=== PATIENT | male | born 1975 | race Caucasian/White ===

== ENCOUNTER 2016-11-28 19:48 | Emergency (ER) | payer OTHER ==
[2016-11-28] MEDS ORDERED: MORPHINE SULFATE 4 MG/ML SYRINGE IM STA (20:28)
[2016-11-28] MEDS ORDERED: ONDANSETRON ODT 4 MG TAB PO STA (20:29)
[2016-11-28] MEDS ORDERED: DIPH,PERTUS(ACELL)TETVAC-LF 0.5 ML VIAL IM ONE (20:31)
[2016-11-28] MEDS ORDERED: MORPHINE SULFATE 10 MG/ML SYRINGE IM STA (20:39)
--- NOTE | 2016-11-28 21:19 | XR ---
EXAMINATION TYPE: XR ribs RT w pa chest xray DATE OF EXAM: 11/28/2016 COMPARISON: 01/17/2016 HISTORY: Right-sided rib pain and falling TECHNIQUE: 5 views FINDINGS: There is no pleural effusion or pneumothorax. Right lung is clear of infiltrate. I see no r ib fracture. Heart and mediastinum appear normal. IMPRESSION: Normal chest. Normal right ribs. No change.
--- NOTE | 2016-11-28 21:21 | XR ---
EXAMINATION TYPE: XR shoulder complete RT DATE OF EXAM: 11/28/2016 COMPARISON: NONE HISTORY: Shoulder pain TECHNIQUE: 3 views FINDINGS: There is probably a nondisplaced chip fracture of the greater tuberosity of the humerus. Th e glenohumeral joint is anatomic. IMPRESSION: Probable nondisplaced fracture of the greater tuberosity of the humerus. This measures 2 cm.
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
[2016-11-28 22:31] VITALS: BP 145/81; PULSE 83; RESP 18; TEMP 98.4
== END 2016-11-28 22:31 | disposition home or self-care (01) ==
LOC: EC 19:48
DX: S42.201A Unspecified fracture of upper end of right humerus, initial encounter for closed fracture (principal); S00.93XA Contusion of unspecified part of head, initial encounter; S30.811A Abrasion of abdominal wall, initial encounter; S50.811A Abrasion of right forearm, initial encounter; Z23 Encounter for immunization; F17.200 Nicotine dependence, unspecified, uncomplicated; V29.9XXA Motorcycle rider (driver) (passenger) injured in unspecified traffic accident, initial encounter; Y92.89 Other specified places as the place of occurrence of the external cause
CPT/HCPCS: 71101; 73030; 90715; 99283; 96372; 90471; J2270

== ENCOUNTER 2017-02-02 22:11 | Emergency (ER) | payer OTHER ==
[2017-02-03 00:59] VITALS: BP 127/86; PULSE 100; RESP 16; TEMP 98.4
--- NOTE | 2017-02-03 01:08 | ED ---
General Adult HPI - General Chief complaint: Extremity Injury, Upper Stated complaint: finger laceration Time Seen by Provider: 02/02/17 23:43 Source: patient Mode of arrival: ambulatory Limitations: no limitations - History of Present Illness Initial comments: Patient presents with a chief complaint of finger laceration that he sustained 4 :00 this afternoon while whittling a bear out of wood for his daughter. Patient states that his tetanus status is up to date. Initially he wrapped his finger and the bleeding was well controlled. He was in his pocket later that evening and the bleeding started again. Patient states that he is having mild pain to the finger. Nothing is aggravating or alleviating. Patient has full use of his left index finger. No other complaints at this time - Related Data Home Medications Medication Instructions Recorded Confirmed Pseudoephedrine HCl [Sudafed 240 mg PO DAILY PRN 02/02/17 02/02/17 24-Hour] Allergies Allergy/AdvReac Type Severity Reaction Status Date / Time No Known Allergies Allergy Verified 02/02/17 23:46 Review of Systems ROS Statement: Those systems with pertinent positive or pertinent negative responses have been documented in the HPI. ROS Other: All systems not noted in ROS Statement are negative. Constitutional: Denies: fever, chills Eyes: Denies: vision change Respiratory: Denies: cough, dyspnea Cardiovascular: Denies: chest pain Endocrine: Denies: fatigue Gastrointestinal: Denies: abdominal pain, nausea Genitourinary: Denies: dysuria Skin: Denies: rash Neurological: Denies: numbness Past Medical History Past Medical History: Osteoarthritis (OA) History of Any Multi-Drug Resistant Organisms: MRSA Past Surgical History: Orthopedic Surgery Past Psychological History: No Psychological Hx Reported Smoking Status: Current every day smoker Past Alcohol Use History: Occasional Past Drug Use History: Marijuana General Exam Limitations: no limitations General appearance: alert, in no apparent distress Head exam: Present: atraumatic, normocephalic Eye exam: Present: normal appearance, PERRL ENT exam: Present: normal exam Neck exam: Present: normal inspection Respiratory exam: Present: normal lung sounds bilaterally. Absent: respiratory distress Cardiovascular Exam: Present: regular rate, normal rhythm, normal heart sounds GI/Abdominal exam: Present: soft, distended Rectal exam: Present: deferred Extremities exam: Present: other (Patient has a skin avulsion to the dorsal aspect of his left index finger. Patient has full range of motion without finger, sensation and motor are intact. Examination of the wound shows that there is no muscle, tendon, nerve, or bony involvement.) Back exam: Present: normal inspection Neurological exam: Present: alert, oriented X3 Psychiatric exam: Present: normal affect, normal mood Skin exam: Present: warm, dry, other (Laceration to finger as described above.) Course Vital Signs 02/02/17 02/03/17 22:14 00:55 Temperature 98.5 F 98.4 F Pulse Rate 118 H 100 Respiratory 18 16 Rate Blood Pressure 140/80 127/86 O2 Sat by Pulse 97 97 Oximetry Procedures - Laceration Laceration #1 Consent Obtained: verbal consent Time Out Performed: Yes Indication: laceration Site: hand Size (cm): 4 Description: flap Depth: simple, single layer Sedation/Analgesia: none Anesthetic Used: lidocaine 1% Anesthesia Technique: nerve block Pre-repair: wound explored, irrigated extensively, deep structures intact Type of Sutures: nylon Size of Sutures: 5-0 Technique: simple, interrupted Patient Tolerated Procedure: well, no complications Medical Decision Making - Medical Decision Making Patient presents with a laceration to the left index finger. Sensation and motor is intact. There is no involvement of deep structures. Laceration was repaired using 5-0 silk suture. A digital block was performed, wound was washed out with copious amounts of water. Patient is a total of 7 stitches. He was instructed to have them removed in 1 week. The wound was dressed with antibiotic ointment, and tube gauze. He was instructed to not soak the finger. Instructed to follow up with primary care, or to return to the emergency department if his symptoms worsen or change. Specifically he was given instructions on finger or hand infections. Patient tolerated procedure well, he remained stable in the emergency department. Patient stable for discharge. Disposition Clinical Impression: Finger laceration Disposition: HOME SELF-CARE Condition: Good Instructions: Finger Laceration (ED) Referrals: William See MD [Primary Care Provider] - 1-2 days
== END 2017-02-03 01:23 | disposition home or self-care (01) ==
LOC: EC 22:11
DX: S61.211A Laceration without foreign body of left index finger without damage to nail, initial encounter (principal); M19.90 Unspecified osteoarthritis, unspecified site; F17.200 Nicotine dependence, unspecified, uncomplicated; W26.0XXA Contact with knife, initial encounter; Y93.G1 Activity, food preparation and clean up; Y92.009 Unspecified place in unspecified non-institutional (private) residence as the place of occurrence of the external cause
CPT/HCPCS: 12002; 99283

== ENCOUNTER 2020-02-27 09:22 | Emergency (ER) | payer OTHER ==
[2020-02-27 09:32] VITALS: BP 136/95; PULSE 81; RESP 18; TEMP 98
--- NOTE | 2020-02-27 09:58 | ED ---
Skin/Abscess/FB HPI - General Chief complaint: Skin/Abscess/Foreign Body Stated complaint: rash on hands/legs Time Seen by Provider: 02/27/20 09:35 Source: patient, RN notes reviewed Mode of arrival: ambulatory Limitations: no limitations - History of Present Illness Initial comments: 44-year-old male presents emergency Department with chief complaint rash shortness hands forearm region. Patient states very itchy. Patient states it's the point where he is scratches his skin open. Patient states this started after being released from [facility]. Patient denies any fevers or chills. Patient states that he tried some antifungal does occasionally help. Patient states that it seems to be spreading at this point. Patient offers no other complaints. - Related Data Home Medications Medication Instructions Recorded Confirmed Pseudoephedrine HCl [Sudafed 240 mg PO DAILY PRN 02/02/17 02/02/17 24-Hour] Previous Rx's Medication Instructions Recorded Cephalexin [Keflex] 500 mg PO QID #28 cap 02/03/17 Permethrin 5% Cream [Elimite] 1 applic TOPICAL ONCE #60 gram 02/27/20 Sulfamethox-Tmp 800-160Mg [Bactrim 1 each PO Q12HR #20 tab 02/27/20 Ds] predniSONE 50 mg PO DAILY #5 tab 02/27/20 Allergies Allergy/AdvReac Type Severity Reaction Status Date / Time No Known Allergies Allergy Verified 02/27/20 09:32 Review of Systems ROS Statement: Those systems with pertinent positive or pertinent negative responses have been documented in the HPI. ROS Other: All systems not noted in ROS Statement are negative. Past Medical History Past Medical History: Osteoarthritis (OA) History of Any Multi-Drug Resistant Organisms: MRSA Past Surgical History: Orthopedic Surgery Past Psychological History: No Psychological Hx Reported Smoking Status: Current every day smoker Past Alcohol Use History: None Reported Past Drug Use History: None Reported General Exam Limitations: no limitations General appearance: alert, in no apparent distress Head exam: Present: atraumatic, normocephalic, normal inspection Neck exam: Present: normal inspection. Absent: tenderness, meningismus, lymphadenopathy Respiratory exam: Present: normal lung sounds bilaterally. Absent: respiratory distress, wheezes, rales, rhonchi, stridor Cardiovascular Exam: Present: regular rate, normal rhythm, normal heart sounds. Absent: systolic murmur, diastolic murmur, rubs, gallop, clicks Skin exam: Present: rash (Bilateral hands, forearm region there is an erythematous rash with excoriations and open wounds noted) Course Vital Signs 02/27/20 09:26 Temperature 98 F Pulse Rate 81 Respiratory 18 Rate Blood Pressure 136/95 O2 Sat by Pulse 96 Oximetry Medical Decision Making - Medical Decision Making Patient has ongoing rash of his upper extremities. This may be some sort of dermatitis versus possible scabies. Patient will be covered with permethrin, antibiotics steroids. Disposition Clinical Impression: Dermatitis Disposition: HOME SELF-CARE Condition: Stable Instructions (If sedation given, give patient instructions): Dermatitis (ED) Additional Instructions: Please return to the Emergency Department if symptoms worsen or any other concerns. Prescriptions: Sulfamethox-Tmp 800-160Mg [Bactrim Ds] 1 each PO Q12HR #20 tab Permethrin 5% Cream [Elimite] 1 applic TOPICAL ONCE #60 gram predniSONE 50 mg PO DAILY #5 tab Is patient prescribed a controlled substance at d/c from ED?: No Referrals: Violeta Umanzor MD [Primary Care Provider] - 1-2 days Tran Shanks MD [STAFF PHYSICIAN] - 1-2 days Time of Disposition: 09:58
== END 2020-02-27 10:08 | disposition home or self-care (01) ==
LOC: EC 09:22
DX: L30.9 Dermatitis, unspecified (principal); F17.200 Nicotine dependence, unspecified, uncomplicated
CPT/HCPCS: 99282

== ENCOUNTER 2020-05-06 23:56 | Emergency (ER) | payer OTHER ==
--- NOTE | 2020-05-07 00:38 | ED ---
Skin/Abscess/FB HPI - General Chief complaint: Skin/Abscess/Foreign Body Stated complaint: not feeling well Time Seen by Provider: 05/07/20 00:17 Source: patient Mode of arrival: ambulatory Limitations: no limitations - History of Present Illness Initial comments: Patient is a 45-year-old male presenting to emergency Department with complaints of some discomfort in his left arm. Patient states he just recently started using IV drugs mostly in his left arm and is concerned he may have an infection. Patient states people have been telling him he "looks pale." He denies having a fever, chills, nausea, vomiting. He states he's been eating and drinking as normal. He states he has some intermittent numbness into his left hand over the past few weeks as well. He denies any chest pain, shortness of breath, cough. He has no further complaints at this time. Upon arrival to the ER his vital signs are stable. - Related Data Home Medications Medication Instructions Recorded Confirmed Pseudoephedrine HCl [Sudafed 240 mg PO DAILY PRN 02/02/17 02/02/17 24-Hour] Previous Rx's Medication Instructions Recorded Cephalexin [Keflex] 500 mg PO QID #28 cap 02/03/17 Permethrin 5% Cream [Elimite] 1 applic TOPICAL ONCE #60 gram 02/27/20 Sulfamethox-Tmp 800-160Mg [Bactrim 1 each PO Q12HR #20 tab 02/27/20 Ds] predniSONE 50 mg PO DAILY #5 tab 02/27/20 Allergies Allergy/AdvReac Type Severity Reaction Status Date / Time No Known Allergies Allergy Verified 05/07/20 00:07 Review of Systems ROS Statement: Those systems with pertinent positive or pertinent negative responses have been documented in the HPI. ROS Other: All systems not noted in ROS Statement are negative. Past Medical History Past Medical History: Osteoarthritis (OA) History of Any Multi-Drug Resistant Organisms: MRSA Past Surgical History: Orthopedic Surgery Past Psychological History: No Psychological Hx Reported Smoking Status: Current every day smoker Past Alcohol Use History: None Reported Past Drug Use History: IV Drug Use, Methamphetamine General Exam - General Exam Comments Initial Comments: GENERAL: Patient is well-developed and well-nourished. Patient is nontoxic and in no acute distress. HEAD: Atraumatic, normocephalic. EYES: Pupils equal round and reactive to light, extraocular movements intact, sclera anicteric, conjunctiva are normal. Eyelids were unremarkable. ENT: TMs normal, nares patent, oropharynx clear without exudates. Moist mucous membranes. NECK: Normal range of motion, supple without lymphadenopathy or JVD. LUNGS: Unlabored respirations. Breath sounds clear to auscultation bilaterally and equal. No wheezes rales or rhonchi. HEART: Regular rate and rhythm without murmurs, rubs or gallops. ABDOMEN: Soft, nontender, normoactive bowel sounds. No guarding, no rebound. No masses appreciated. : Deferred MUSCULOSKELETAL: Normal extremities with adequate strength and normal range of motion, no pitting or edema. No clubbing or cyanosis. NEUROLOGICAL: Patient is alert and oriented x 3. Motor and sensory are also intact. Cranial nerves II through XII grossly intact. Symmetrical smile. Normal speech, normal gait. PSYCH: Normal mood, normal affect. SKIN: Warm, Dry, normal turgor. Patient has numerous tracks crain on his left arm mostly around the left elbow and left hand. There is no signs of an abscess or infection at this time. Limitations: no limitations Course Vital Signs 05/07/20 00:04 Temperature 98.4 F Pulse Rate 84 Respiratory 18 Rate Blood Pressure 149/78 O2 Sat by Pulse 97 Oximetry Medical Decision Making - Medical Decision Making Patient is a 45-year-old male here for complaints of possible infection in his left arm. Patient admits to being an IV drug abuser for the last 3 weeks. He does have track crain mostly in his left arm, there is no obvious infection or abscess at this time. His vital signs are stable he is afebrile. The rest of exam is unremarkable, he does not look pale. I discussed with patient that he needs to keep these wounds clean and dry. Stop using IV drugs. He is stable for discharge at this time. Return parameters were discussed with the patient he verbalizes understanding. Disposition Clinical Impression: IV drug user, Track crain due to intravenous drug abuse Disposition: HOME SELF-CARE Condition: Stable Instructions (If sedation given, give patient instructions): Methamphetamine Abuse (ED) Additional Instructions: Please return to the Emergency Department if symptoms worsen or any other concerns. Keep wounds clean and dry. Stop using drugs. Is patient prescribed a controlled substance at d/c from ED?: No Referrals: Violeta Umanzor MD [Primary Care Provider] - 1-2 days
[2020-05-07 01:08] VITALS: BP 143/84; PULSE 80; RESP 14; TEMP 97.9
== END 2020-05-07 00:45 | disposition home or self-care (01) ==
LOC: EC 23:56
DX: F15.10 Other stimulant abuse, uncomplicated (principal); F17.200 Nicotine dependence, unspecified, uncomplicated; Z86.14 Personal history of Methicillin resistant Staphylococcus aureus infection
CPT/HCPCS: 99283

== ENCOUNTER 2020-05-27 20:24 | Emergency (ER) | payer OTHER ==
[2020-05-27 20:30] VITALS: BP 124/72; PULSE 89; RESP 20; TEMP 98
--- NOTE | 2020-05-27 21:01 | ED ---
General Adult HPI - General Chief complaint: Skin/Abscess/Foreign Body Stated complaint: Sores on feet/hands Time Seen by Provider: 05/27/20 20:32 Source: patient Mode of arrival: ambulatory Limitations: no limitations - History of Present Illness Initial comments: 45-year-old male with history of IV drug use and MRSA presenting to emergency Department with chief complaint of sores on bilateral feet and hands. He states these began about 2 days ago and there is a "yellow film of oil" that comes from his feet and hands. He denies any night sweats fevers or chills. States the lesions on his hands have been there for quite some time, however there is one new lesion on his dorsal aspect of the right hand. She does report some yellow discharge from that particular region. She does report tenderness to palpation. He denies taking medication to the symptoms. Denies any lesions on his fingernails any chest pain or shortness of breath. - Related Data Home Medications Medication Instructions Recorded Confirmed Pseudoephedrine HCl [Sudafed 240 mg PO DAILY PRN 02/02/17 02/02/17 24-Hour] Previous Rx's Medication Instructions Recorded Cephalexin [Keflex] 500 mg PO QID #28 cap 02/03/17 Permethrin 5% Cream [Elimite] 1 applic TOPICAL ONCE #60 gram 02/27/20 Sulfamethox-Tmp 800-160Mg [Bactrim 1 each PO Q12HR #20 tab 02/27/20 Ds] predniSONE 50 mg PO DAILY #5 tab 02/27/20 Sulfamethox-Tmp 800-160Mg [Bactrim 1 each PO Q12HR #20 tab 05/27/20 Ds] Allergies Allergy/AdvReac Type Severity Reaction Status Date / Time No Known Allergies Allergy Verified 05/27/20 20:30 Review of Systems ROS Statement: Those systems with pertinent positive or pertinent negative responses have been documented in the HPI. ROS Other: All systems not noted in ROS Statement are negative. Past Medical History Past Medical History: Osteoarthritis (OA) History of Any Multi-Drug Resistant Organisms: MRSA Past Surgical History: Orthopedic Surgery Past Psychological History: No Psychological Hx Reported Smoking Status: Current every day smoker Past Alcohol Use History: None Reported Past Drug Use History: IV Drug Use, Methamphetamine General Exam Limitations: no limitations General appearance: alert, in no apparent distress Head exam: Present: atraumatic, normocephalic, normal inspection Eye exam: Present: normal appearance, PERRL, EOMI Pupils: Present: normal accommodation ENT exam: Present: normal exam, normal oropharynx, mucous membranes moist, TM's normal bilaterally, normal external ear exam Neck exam: Present: normal inspection, full ROM. Absent: tenderness Respiratory exam: Present: normal lung sounds bilaterally. Absent: respiratory distress, wheezes, rales Cardiovascular Exam: Present: regular rate, normal rhythm, normal heart sounds. Absent: systolic murmur, diastolic murmur Extremities exam: Present: normal inspection (Healing lesions on bilateral hands, particularly the dorsal aspect. There is a suspected small abscess on the right hand with no active discharge at this time. no detectable lesions on his feet), full ROM, normal capillary refill, other (+2 ulnar and radial pulses bilaterally. +2 dorsalis pedis and posterior tibial bilaterally.). Absent: tenderness, pedal edema, joint swelling, calf tenderness Back exam: Present: normal inspection, full ROM. Absent: tenderness, CVA tenderness (R), CVA tenderness (L) Neurological exam: Present: alert, oriented X3, normal gait Psychiatric exam: Present: normal affect, normal mood. Absent: depressed, agitated Skin exam: Present: warm, dry, intact, normal color Course Vital Signs 05/27/20 20:26 Temperature 98.0 F Pulse Rate 89 Respiratory 20 Rate Blood Pressure 124/72 O2 Sat by Pulse 97 Oximetry Medical Decision Making - Medical Decision Making 45-year-old male with history of IV drug use and MRSA presenting to the emergency department with chief complaint of lesions on the hands and feet. On physical examination, patient does appear to have a small abscess-like lesion on his right hand. This appears to be indurated with no area of fluctuance. No incision and drainage performed. There is no lesions on the fingernails and he did not have any chest pain or fevers. Patient will be started on Bactrim to cover for MRSA. He was advised to follow up with a primary care physician. Strict return parameters were thoroughly discussed with patient was understanding and agreeable. Case discussed with physician. Disposition Clinical Impression: Skin lesion, IV drug user, Track crain due to intravenous drug abuse Disposition: HOME SELF-CARE Condition: Stable Instructions (If sedation given, give patient instructions): Abscess (ED) Additional Instructions: Take prescribed medication as directed. Follow up with the primary care physician. Return to emergency department if symptoms worsen. Prescriptions: Sulfamethox-Tmp 800-160Mg [Bactrim Ds] 1 each PO Q12HR #20 tab Is patient prescribed a controlled substance at d/c from ED?: No Referrals: Violeta Umanzor MD [Primary Care Provider] - 1-2 days Time of Disposition: 21:01
== END 2020-05-27 21:15 | disposition home or self-care (01) ==
LOC: EC 20:24
DX: L98.9 Disorder of the skin and subcutaneous tissue, unspecified (principal); F19.10 Other psychoactive substance abuse, uncomplicated; F17.200 Nicotine dependence, unspecified, uncomplicated
CPT/HCPCS: 99283

== ENCOUNTER 2020-05-31 02:42 | Inpatient (IN) | payer MEDICAID, OTHER ==
--- NOTE | 2020-05-31 03:13 | ED ---
General Adult HPI - General Source: patient, police, RN notes reviewed Mode of arrival: ambulatory Limitations: no limitations <Adolfo Blanco - Last Filed: 05/31/20 03:12> <Vicente Granados - Last Filed: 05/31/20 06:13> - General Chief complaint: Anxiety Stated complaint: Mental Health - History of Present Illness Initial comments: 45-year-old male with a past medical history of IV drug abuse, methamphetamine use presents to the emergency room for a chief complaint of mental health evaluation. Patient was petitioned by [facility] for mental health evaluation. Therefore the patient was found outside in the snow and his shirt and underwear. Patient states he took his pants off because he was having a bowel movement with the tapeworm. Patient states he was a very long worm that had a mucousy thick film over it. Patient states his hands and then started noticing green and brown pus and was foul-smelling. Patient states he thought he was turning into a zombie. Patient states the other bumps on his hand her from work however they stay around and go away because he has tapeworms in his skin.Patient has no other complaints at this time including shortness of breath, chest pain, abdominal pain, nausea or vomiting, headache, or visual changes. (Adolfo Blnaco) - Related Data Home Medications Medication Instructions Recorded Confirmed Pseudoephedrine HCl [Sudafed 240 mg PO DAILY PRN 02/02/17 02/02/17 24-Hour] Previous Rx's Medication Instructions Recorded Cephalexin [Keflex] 500 mg PO QID #28 cap 02/03/17 Permethrin 5% Cream [Elimite] 1 applic TOPICAL ONCE #60 gram 02/27/20 Sulfamethox-Tmp 800-160Mg [Bactrim 1 each PO Q12HR #20 tab 02/27/20 Ds] predniSONE 50 mg PO DAILY #5 tab 02/27/20 Sulfamethox-Tmp 800-160Mg [Bactrim 1 each PO Q12HR #20 tab 05/27/20 Ds] Allergies Allergy/AdvReac Type Severity Reaction Status Date / Time No Known Allergies Allergy Verified 05/31/20 02:49 Review of Systems ROS Other: All systems not noted in ROS Statement are negative. <Adolfo Blanco - Last Filed: 05/31/20 03:12> ROS Other: All systems not noted in ROS Statement are negative. <Vicente Granados - Last Filed: 05/31/20 06:13> ROS Statement: Those systems with pertinent positive or pertinent negative responses have been documented in the HPI. Past Medical History Past Medical History: Osteoarthritis (OA) History of Any Multi-Drug Resistant Organisms: MRSA Date of last positivie culture/infection: 2005 MDRO Source:: right knee Past Surgical History: Orthopedic Surgery Past Psychological History: No Psychological Hx Reported Smoking Status: Current every day smoker Past Alcohol Use History: None Reported Past Drug Use History: IV Drug Use, Methamphetamine <Adolfo Blanco P - Last Filed: 05/31/20 03:12> General Exam Limitations: no limitations General appearance: alert, in no apparent distress Head exam: Present: atraumatic, normocephalic, normal inspection Eye exam: Present: normal appearance, PERRL, EOMI. Absent: scleral icterus, conjunctival injection, periorbital swelling ENT exam: Present: normal exam, mucous membranes moist Neck exam: Present: normal inspection, full ROM. Absent: tenderness, meningismus, lymphadenopathy Respiratory exam: Present: normal lung sounds bilaterally. Absent: respiratory distress, wheezes, rales, rhonchi, stridor Cardiovascular Exam: Present: regular rate, normal rhythm, normal heart sounds. Absent: systolic murmur, diastolic murmur, rubs, gallop, clicks GI/Abdominal exam: Present: soft, normal bowel sounds. Absent: distended, tenderness, guarding, rebound, rigid Extremities exam: Present: other (Hands and skin are normal-appearing. Patient does have a fissure between the fourth and fifth digit of the right hand without any purulent material or signs of infection.) <Adolfo Blanco P - Last Filed: 05/31/20 03:12> General appearance: alert, in no apparent distress, anxious Head exam: Present: atraumatic, normocephalic, normal inspection Eye exam: Present: normal appearance. Absent: scleral icterus, conjunctival injection, periorbital swelling ENT exam: Present: normal exam, mucous membranes moist Neck exam: Present: normal inspection. Absent: tenderness, meningismus, lymphadenopathy Cardiovascular Exam: Present: regular rate, normal rhythm GI/Abdominal exam: Present: soft, normal bowel sounds. Absent: distended, tenderness, guarding, rebound, rigid Extremities exam: Present: normal inspection, full ROM, normal capillary refill. Absent: tenderness, pedal edema, joint swelling, calf tenderness Back exam: Present: normal inspection Neurological exam: Present: alert, oriented X3, CN II-XII intact Psychiatric exam: Present: normal affect, normal mood Skin exam: Present: warm, dry, intact, normal color. Absent: rash <Vicente Granados - Last Filed: 05/31/20 06:13> Course <Vicente Granados - Last Filed: 05/31/20 06:13> Vital Signs 05/31/20 02:43 Temperature 98.1 F Pulse Rate 100 Respiratory 24 Rate Blood Pressure 164/85 O2 Sat by Pulse 99 Oximetry - Reevaluation(s) Reevaluation #1: 05/31/20 06:11 Medical records reviewed (Vicente Granados) Reevaluation #2: 05/31/20 06:11 Patient is medically clear for psychiatry and seen by psychiatry here in the ED (Vicente Granados) Reevaluation #3: 05/31/20 06:12 Patient seen and evaluated reevaluated resting comfortably (Vicente Granados) Medical Decision Making <Adolfo Blanco - Last Filed: 05/31/20 03:12> <Vicente Granados - Last Filed: 05/31/20 06:13> - Medical Decision Making Patient was medically cleared. Signed out to Dr. Granados Pending psychiatric evaluation at 3 AM (Adolfo Blanco) 45 male seen and evaluated however psychiatry here in the emergency department. Patient is to be transferred inpatient psychiatric evaluation and treatment (Vicente Granados) - Lab Data Lab Results 05/31/20 Range/Units 03:13 Urine Opiates Screen Not Detected (NotDetected) Ur Oxycodone Screen Not Detected (NotDetected) Urine Methadone Screen Not Detected (NotDetected) Ur Propoxyphene Screen Not Detected (NotDetected) Ur Barbiturates Screen Not Detected (NotDetected) U Tricyclic Antidepress Not Detected (NotDetected) Ur Phencyclidine Scrn Not Detected (NotDetected) Ur Amphetamines Screen Detected H (NotDetected) U Methamphetamines Scrn Detected H (NotDetected) U Benzodiazepines Scrn Detected H (NotDetected) Urine Cocaine Screen Not Detected (NotDetected) U Marijuana (THC) Screen Detected H (NotDetected) Disposition <Adolfo Blanco - Last Filed: 05/31/20 03:12> Is patient prescribed a controlled substance at d/c from ED?: No <Vicente Granados - Last Filed: 05/31/20 06:13> Clinical Impression: IV drug user, Acute psychosis, Polysubstance abuse Disposition: TRANSFER TO PSYCH HOSP/UNIT Condition: Fair Referrals: Violeta Umanzor MD [Primary Care Provider] - 1-2 days
[2020-05-31 04:18] LABS: Amphetamine Screen,Urine Detected (NotDetected); Barbiturate Screen,Urine Not Detected (NotDetected); Benzodiazepines Screen,Urine Detected (NotDetected); Cocaine Screen,Urine Not Detected (NotDetected); Methadone Screen, Urine Not Detected (NotDetected); Opiate Screen,Urine Not Detected (NotDetected); Oxycodone Screen, Urine Not Detected (NotDetected); Phencyclidine Screen,Urine Not Detected (NotDetected); Tricyclic Antidepressant,Urine Not Detected (NotDetected); Urn Cannabinoid Scrn Detected (NotDetected)
[2020-05-31] MEDS ORDERED: LORazepam 1 MG TAB PO PRN (07:25)
[2020-05-31] MEDS ORDERED: MAG HYDROX/AL HYDROX/SIMETH 30 ML CUP PO PRN (07:25)
[2020-05-31] MEDS ORDERED: MAGNESIUM HYDROXIDE 2,400 MG/10 ML CUP PO PRN (07:25)
[2020-05-31] MEDS ORDERED: ACETAMINOPHEN TAB 325 MG TAB PO PRN (07:25)
[2020-05-31] MEDS ORDERED: LORazepam 2 MG/ML INJ IM PRN (07:32)
[2020-05-31] MEDS ORDERED: HALOPERIDOL LACTATE 5 MG/ML 1 ML VIAL IM PRN (07:32)
[2020-05-31] MEDS ORDERED: haloperidoL 5 MG TAB PO PRN (07:32)
[2020-05-31 09:30] LABS: Appearance,Urine Turbid (Clear); Bilirubin,Urine Negative (Negative); Blood,Urine Negative (Negative); Calcium Oxalate Crystals,Urine Many /hpf; Color,Urine Yellow; Glucose,Urine (UA) Negative (Negative); Hyaline Casts,Urine 5 /lpf (0-2); Ketones,Urine 2+ (Negative); Leukocyte Esterase,Urine Negative (Negative); Mucus,Urine Many /hpf; Nitrite,Urine Negative (Negative); Protein,Urine 1+ (Negative); RBC,Urine 1 /hpf (0-5); Specific Gravity,Urine 1.033 (1.001-1.035); Squamous Epithelial Cell,Urine <1 /hpf (0-4); WBC,Urine 1 /hpf (0-5)
[2020-05-31] MEDS ORDERED: INFLUENZA VACCINE (6 MOS+) 60 MCG/0.5 ML SYRINGE IM ONE (10:03)
[2020-05-31] MEDS: NICOTINE 14MG/24HR PATCH TRANSDERM SCH (10:15)
--- NOTE | 2020-05-31 14:40 | P.HP ---
Psychiatric H&P - . H&P Date: 05/31/20 History & Physical: Allergies Allergy/AdvReac Type Severity Reaction Status Date / Time No Known Allergies Allergy Verified 05/31/20 10:16 Vital Signs Temp 97.8 F 05/31/20 12:48 Pulse 92 05/31/20 09:50 Resp 14 05/31/20 09:50 BP 132/79 05/31/20 09:50 Pulse Ox 95 05/31/20 09:50 Intake & Output 05/30/20 05/31/20 05/31/20 18:59 06:59 18:59 Weight 99.79 kg 95.8 kg Laboratory Last Values Urine Color Yellow 05/31/20 03:13 Urine Appearance Turbid (Clear) 05/31/20 03:13 Urine pH 6.0 (5.0-8.0) 05/31/20 03:13 Ur Specific [place] 1.033 (1.001-1.035) 05/31/20 03:13 Urine Protein 1+ (Negative) H 05/31/20 03:13 Urine Glucose (UA) Negative (Negative) 05/31/20 03:13 Urine Ketones 2+ (Negative) H 05/31/20 03:13 Urine Blood Negative (Negative) 05/31/20 03:13 Urine Nitrite Negative (Negative) 05/31/20 03:13 Urine Bilirubin Negative (Negative) 05/31/20 03:13 Urine Urobilinogen 2.0 mg/dL (<2.0) 05/31/20 03:13 Ur Leukocyte Esterase Negative (Negative) 05/31/20 03:13 Urine RBC 1 /hpf (0-5) 05/31/20 03:13 Urine WBC 1 /hpf (0-5) 05/31/20 03:13 Ur Squamous Epith Cells <1 /hpf (0-4) 05/31/20 03:13 Calcium Oxalate Crystal Many /hpf (None) H 05/31/20 03:13 Hyaline Casts 5 /lpf (0-2) H 05/31/20 03:13 Urine Mucus Many /hpf (None) H 05/31/20 03:13 Urine Opiates Screen Not Detected (NotDetected) 05/31/20 03:13 Ur Oxycodone Screen Not Detected (NotDetected) 05/31/20 03:13 Urine Methadone Screen Not Detected (NotDetected) 05/31/20 03:13 Ur Propoxyphene Screen Not Detected (NotDetected) 05/31/20 03:13 Ur Barbiturates Screen Not Detected (NotDetected) 05/31/20 03:13 U Tricyclic Antidepress Not Detected (NotDetected) 05/31/20 03:13 Ur Phencyclidine Scrn Not Detected (NotDetected) 05/31/20 03:13 Ur Amphetamines Screen Detected (NotDetected) H 05/31/20 03:13 U Methamphetamines Scrn Detected (NotDetected) H 05/31/20 03:13 U Benzodiazepines Scrn Detected (NotDetected) H 05/31/20 03:13 Urine Cocaine Screen Not Detected (NotDetected) 05/31/20 03:13 U Marijuana (THC) Screen Detected (NotDetected) H 05/31/20 03:13 Coronavirus (PCR) Not Detected (Not Detectd) 05/31/20 06:11 05/31/20 14:31 IDENTIFYING DATA: Patient is a 45-year-old male with a history of intravenous drug use methamphetamine abuse and currently lives with a female friend in the apartment has one biological daughter and 1 stepdaughter and works as a piper installer doing construction. HPI: Patient presented to the hospital yesterday requesting a mental health evaluation. Patient was petitioned by the police as he was found outside in snow with his shirt and taking his pants off because he believed that he had a tapeworm and his bowel movement. Patient also described in the ER having on his hands a green/brown pus on it and also spoke about turning into a zombie. Patient's UDS was positive for THC, methamphetamine, benzodiazepines. He claims that he is been using meth approximately half a gram a week for the past few weeks. Patient was agreeable to speak with adjusto writer operator today in the office. He states that he picked up his daughter from work and [facility] on his right hand which popped and "looked like a faucet" as it started licking fluid. He states that he was a "gaseous substance" and claims that he graded on a chiseled. He states that he has been dealing with this for approximately 2 years now and has been seen several times in the ER. He showed adjusto writer operator his hand were the wart was and it appeared to have a small laceration. He was fairly anxious and claimed that his mood was fair. He states that his knee and his skin is a "waxy skin" and described as yellow. He states that he was also at the bathroom [place] [facility] and claims that he had a fine hair coming out of his anus well he was in the restroom and he believes that he was a "tapeworm". He did admit to paranoia towards the staff in the hospital and believes that everyone thinks he is crazy. He claims that he has been having fair sleep at night. Patient denies any suicidal or homicidal ideations intent or plan. At this time patient denies any auditory or visual hallucinations. Patient admits to using recreational drugs as noted above and claims that he also smokes marijuana, does not use any alcohol but does smoke cigarettes. He also states that he has been to rehab 2 times in the past at [facility]. PAST PSYCHIATRIC HISTORY: Patient states that he has a history of polysubstance abuse. Patient denies being on any psychiatric medications. That he was once admitted at the age of [age] years old for cutting himself to a psychiatric hospital in [place] Patient denies any psychiatric outpatient follow-up. Patient denies any history of suicide attempts in the past. PMH:denies ALLERGIES: as per EMR CHEMICAL DEPENDENCY HISTORY: as per HPI FAMILY PSYCHIATRIC/SUBSTANCE USE HISTORY: denies SOCIAL HISTORY: Patient was born in [place] and also raised in [place]. He states that currently he lives in [place] and lives with a female friend in the apartment. He states that he has one biological daughter and 1 stepdaughter. 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 He states that he has some college after finishing high school. He claims that he was imprisoned from 2017 and released last year for charges related to assault and robbery. MENTAL STATUS EXAM: General Appearance: Patient appears to be well-built, several tattoos, stated age is alert, appears anxious and uncooperative at times. Patient appears to have poor hygiene and grooming. Wearing street clothing. Behavior: Patient is seated without any agitated behavior. Appears anxious. paranoid. Speech: Patient's speech is fluent and nonpressured. Mood/Affect: Patient reports their mood is "okay", affect is congruent and constricted. Suicidality/Homicidality: Patient denies having any homicidal ideation intent or plan. Denies any suicidal ideations intent or plan Perceptions: Patient denies any visual hallucinations and denies any auditory hallucinations. Tactile hallucinations. Though content/process: Patient is preoccupied with tactile hallucinations. Focused on discharge and minimizing his symptoms. Memory and concentration: AOX3, grossly intact for the purposes of this session. Can spell "WORLD" backwards Judgment and insight: poor STRENGTHS/WEAKNESSES: strength is that patient is resilient. Weakness is that patient has poor judgment/insight and is impulsive INTELLECT: average IMPRESSIONS: Psychosis unspecified, rule out delusional parasitosis Methamphetamine abuse Cannabis abuse Nicotine dependence PLAN: -Patient is admitted under voluntary status to [facility]HU for stabilization of psychiatric symptoms and safety. Patient has signed adult voluntary form and is placed in patient's chart. -Medications : Will start patient on paliperidone 3 mg daily for psycho sis/delusions. Will also start patient on 5 mg daily at bedtime when necessary of melatonin. -Ativan and Haldol PRN for agitation/aggression -Patient was counselled on substance abuse and desired to cut back on use. Patient appears to have superficial insight into his drug use. -Patient was informed of the risks, benefits and side effects of the medication and patient verbally consented to taking the medications. Patient signed med consent form and was placed in chart. Patient requested to read up more on the paliperidone medication and nurse will be giving patient information sheet on it. Rate Quoting Operator answered several questions related to the medications. -Internal Medicine consult to perform medical evaluation and physical. -NRT - nicotine patch -SW on board for discharge planning. Encourage patient to participate in groups to work on coping skills.
[2020-05-31] MEDS: PALIPERIDONE 3 MG TAB.ER.24 PO SCH (14:50)
--- NOTE | 2020-05-31 18:15 | P.MDCNMH ---
History of Present Illness H&P Date: 05/31/20 Chief Complaint: Anxiety Patient is an 45-year-old male with a known history of osteoarthritis, currently every day smoker and polysubstance abuse including IV drug use presents to ER for mental health evaluation. Patient was petitioned by police department and was brought to the hospital. Apparently patient was found outside in the snow with his shirt and underwear. Patient states that he took his pants off because he was having a bowel movement with the tape warm. Patient also states that he was having green and brown discharge from his hand and foul-smelling and greasy skin. Patient states that he was also having bumps on his skin and peeling of his skin. Otherwise denied any chest pain or shortness of breath. No fever no chills. No cough or sputum production. Denied any headache or dizziness or lightheadedness. No recent history of recent fall. Laboratory data was ordered in the ER. Urinalysis is negative for infection plus UDS is positive for amphetamines, methamphetamines, benzodiazepines, and marijuana. Review of Systems Patient is currently unable to provide reliable history. Complete review of systems could not be obtained at this time. Past Medical History Past Medical History: Osteoarthritis (OA) History of Any Multi-Drug Resistant Organisms: MRSA Date of last positivie culture/infection: 2005 MDRO Source:: right knee Past Surgical History: Orthopedic Surgery Smoking Status: Current every day smoker Medications and Allergies Home Medications Medication Instructions Recorded Confirmed Type Sulfamethox-Tmp 800-160Mg [Bactrim 1 tab PO Q12HR 05/31/20 05/31/20 History Ds] Allergies Allergy/AdvReac Type Severity Reaction Status Date / Time No Known Allergies Allergy Verified 05/31/20 10:16 Physical Exam Vitals: Vital Signs Temp Pulse Pulse Resp BP BP Pulse Ox 05/31/20 12:48 97.8 F 05/31/20 09:50 98.0 F 92 14 132/79 95 05/31/20 09:24 98.1 F 84 18 140/73 98 05/31/20 09:00 18 05/31/20 08:00 18 05/31/20 06:23 84 19 140/73 98 05/31/20 02:43 98.1 F 100 24 164/85 99 Intake and Output 05/31/20 05/31/20 05/31/20 06:59 14:59 22:59 Other: Weight 99.79 kg 95.8 kg PHYSICAL EXAMINATION: Patient is lying in the bed comfortably, no acute distress, awake alert and oriented 2-3.. HEENT: Normocephalic. Neck is supple. Pupils reactive. Nostrils clear. Oral cavity is moist. Ears reveal no drainage. Neck reveals no JVD, carotid bruits, or thyromegaly. CHEST EXAMINATION: Trachea is central. Symmetrical expansion. Lung edwards clear to auscultation and percussion. CARDIAC: Normal S1, S2 with no gallops. No murmurs ABDOMEN: Soft. Bowel sounds normal. No organomegaly. No abdominal bruits. Extremities: reveal no edema. No clubbing or cyanosis Neurologically awake, alert, oriented x2-3 with well-coordinated movements. No focal deficits noted Skin: No rash or skin lesions. Tattoo markings on both the hands. Psychiatric: Patient does have bizarre behavior and anxious and paranoid. No agitation. Musculoskeletal: No joint swelling or deformity. Normal range of motion. Cranial Nerve Examination - Cranial Nerves Cranial Nerve I- Olfactory: Intact Cranial Nerve II- Optic: Intact Cranial Nerve III- Oculomotor: Intact Cranial Nerve IV- Trochlear: Intact Cranial Nerve V- Trigeminal: Intact Cranial Nerve - Abducens: Intact Cranial Nerve VII- Facial: Intact Cranial Nerve VIII- Auditory: Intact Cranial Nerve IX- Glossopharyngeal: Intact Cranial Nerve X- Vagus: Intact Cranial Nerve XI- Accessory: Intact Cranial Nerve XII- Hypoglossal: Intact Results Labs: Abnormal Lab Results - Last 24 Hours (Table) 05/31/20 05/31/20 Range/Units 03:13 03:13 Urine Protein 1+ H (Negative) Urine Ketones 2+ H (Negative) Calcium Oxalate Crystal Many H (None) /hpf Hyaline Casts 5 H (0-2) /lpf Urine Mucus Many H (None) /hpf Ur Amphetamines Screen Detected H (NotDetected) U Methamphetamines Scrn Detected H (NotDetected) U Benzodiazepines Scrn Detected H (NotDetected) U Marijuana (THC) Screen Detected H (NotDetected) Assessment and Plan Assessment: Acute psychosis with the delusional behavior Polysubstance abuse with UDS positive for methamphetamines, marijuana and benzodiazepines Ongoing nicotine addiction Osteoarthritis DVT prophylaxis with early ablation. Plan: Patient will be continued on current psychiatric medications and management. Follow-up CBC and CMP and TSH levels. Monitor for withdrawal symptoms. Further recommendations based on the clinical course.
[2020-05-31] MEDS: MELATONIN 5 MG TABLET PO PRN (21:03)
[2020-06-01 08:20] LABS: Basophils % (A) 1 %; Eosinophils # (A) 0.1 k/uL (0-0.7); Eosinophils % (A) 2 %; HCT 42.7 % (39.0-53.0); HGB 14.5 gm/dL (13.0-17.5); Lymphocytes # (A) 1.1 k/uL (1.0-4.8); Lymphocytes % (A) 27 %; MCH 30.1 pg (25.0-35.0); MCHC 33.9 g/dL (31.0-37.0); MCV 88.9 fL (80.0-100.0); Monocytes # (A) 0.3 k/uL (0-1.0); Monocytes % (A) 6 %; Neutrophils # (A) 2.6 k/uL (1.3-7.7); Neutrophils % (A) 62 %; Platelet Count 187 k/uL (150-450); RBC 4.81 m/uL (4.30-5.90); RDW 12.5 % (11.5-15.5); WBC 4.2 k/uL (3.8-10.6)
[2020-06-01 08:28] LABS: ALT 22 U/L (4-49); AST 31 U/L (17-59); African American GFR (CKD) >90 (>60 ml/min/1.73 sqM); Albumin 4.2 g/dL (3.5-5.0); Alkaline Phosphatase 64 U/L (38-126); Anion Gap 4 mmol/L; Bilirubin, Delta 0.3 mg/dL (0.0-0.2); Bilirubin,Unconjugated 0.7 mg/dL (0.0-1.1); Blood Urea Nitrogen 12 mg/dL (9-20); Calcium 9.5 mg/dL (8.4-10.2); Carbon Dioxide 33 mmol/L (22-30); Chloride 101 mmol/L (98-107); Cholesterol 161 mg/dL (<200); Glucose 111 mg/dL (74-99); HDL Cholesterol 57 mg/dL (40-60); LDL Cholesterol,Calculated 90 mg/dL (0-99); Non-African American GFR(CKD) >90 (>60 ml/min/1.73 sqM); Potassium 4.5 mmol/L (3.5-5.1); Sodium 138 mmol/L (137-145); Total Protein 6.8 g/dL (6.3-8.2); Triglycerides 71 mg/dL (<150)
[2020-06-01] MEDS: NICOTINE 14MG/24HR PATCH TRANSDERM SCH (08:42)
[2020-06-01] MEDS: PALIPERIDONE 3 MG TAB.ER.24 PO SCH (08:42)
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
[2020-06-01 14:49] LABS: Hemoglobin A1C 5.5 % (4.0-6.0)
[2020-06-01] MEDS: MELATONIN 5 MG TABLET PO PRN (20:40)
[2020-06-02 06:49] VITALS: BP 127/83; PULSE 87; RESP 16; TEMP 97.9
[2020-06-02] MEDS: NICOTINE 14MG/24HR PATCH TRANSDERM SCH (08:38)
[2020-06-02] MEDS: PALIPERIDONE 3 MG TAB.ER.24 PO SCH (08:39)
[2020-06-02] MEDS ORDERED: INFLUENZA VACCINE (6 MOS+) 60 MCG/0.5 ML SYRINGE IM ONE (09:21)
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
== END 2020-06-02 12:20 | disposition home or self-care (01) | DRG 897 ==
LOC: EC 02:42 → 3MHU 07:16
PROVIDERS: ADMIT Psychiatry & Neurology Psychiatry; ATTEND Psychiatry & Neurology Psychiatry
DX: F15.250 Other stimulant dependence with stimulant-induced psychotic disorder with delusions (principal); F11.21 Opioid dependence, in remission; F12.10 Cannabis abuse, uncomplicated; F17.200 Nicotine dependence, unspecified, uncomplicated; M19.90 Unspecified osteoarthritis, unspecified site; Z20.828 Contact with and (suspected) exposure to other viral communicable diseases; Z86.14 Personal history of Methicillin resistant Staphylococcus aureus infection; Z91.5 Personal history of self-harm; Z65.3 Problems related to other legal circumstances
CPT/HCPCS: 80053; 80061; 80306; 81001; 82075; 82248; 83036; 84443; 85025; 87635; 90686; 99285

== ENCOUNTER 2020-08-22 13:47 | Emergency (ER) | payer OTHER ==
[2020-08-22 13:52] VITALS: TEMP 98
[2020-08-22] MEDS ORDERED: ACETAMINOPHEN TAB 500 MG TAB PO STA (14:15)
[2020-08-22] MEDS ORDERED: DIPH,PERTUS(ACELL)TETVAC-LF 0.5 ML VIAL IM ONE (14:15)
[2020-08-22] MEDS ORDERED: LIDOCAINE/EPINEPHR/TETRACAINE 5 ML BOTTLE TOPICAL ONE (14:19)
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
[2020-08-22 14:59] LABS: Basophils # (A) 0.1 k/uL (0-0.2); Basophils % (A) 1 %; Eosinophils # (A) 0.1 k/uL (0-0.7); Eosinophils % (A) 1 %; HCT 41.7 % (39.0-53.0); HGB 14.1 gm/dL (13.0-17.5); Lymphocytes # (A) 1.4 k/uL (1.0-4.8); Lymphocytes % (A) 13 %; MCH 28.9 pg (25.0-35.0); MCHC 33.7 g/dL (31.0-37.0); MCV 85.9 fL (80.0-100.0); Mean Platelet Volume 6.8; Monocytes # (A) 0.4 k/uL (0-1.0); Monocytes % (A) 3 %; Neutrophils % (A) 82 %; Platelet Count 233 k/uL (150-450); RBC 4.85 m/uL (4.30-5.90)
[2020-08-22 15:14] LABS: ALT 92 U/L (4-49); AST 257 U/L (17-59); African American GFR (CKD) >90 (>60 ml/min/1.73 sqM); Albumin 3.7 g/dL (3.5-5.0); Alkaline Phosphatase 54 U/L (38-126); Anion Gap 2 mmol/L; Blood Urea Nitrogen 12 mg/dL (9-20); Calcium 9.3 mg/dL (8.4-10.2); Carbon Dioxide 33 mmol/L (22-30); Chloride 101 mmol/L (98-107); Glucose 103 mg/dL (74-99); Non-African American GFR(CKD) >90 (>60 ml/min/1.73 sqM); Potassium 4.5 mmol/L (3.5-5.1); Sodium 136 mmol/L (137-145); Total Bilirubin 0.3 mg/dL (0.2-1.3); Total Protein 6.1 g/dL (6.3-8.2)
[2020-08-22 15:37] VITALS: BP 134/85; PULSE 73; RESP 18
--- NOTE | 2020-08-22 15:51 | ED ---
Medical Decision Making - Lab Data Result diagrams: 08/22/20 14:45 08/22/20 14:45 Lab Results 08/22/20 08/22/20 Range/Units 14:45 14:45 WBC 11.0 H (3.8-10.6) k/uL RBC 4.85 (4.30-5.90) m/uL Hgb 14.1 (13.0-17.5) gm/dL Hct 41.7 (39.0-53.0) % MCV 85.9 (80.0-100.0) fL MCH 28.9 (25.0-35.0) pg MCHC 33.7 (31.0-37.0) g/dL RDW 13.0 (11.5-15.5) % Plt Count 233 (150-450) k/uL MPV 6.8 Neutrophils % 82 % Lymphocytes % 13 % Monocytes % 3 % Eosinophils % 1 % Basophils % 1 % Neutrophils # 9.0 H (1.3-7.7) k/uL Lymphocytes # 1.4 (1.0-4.8) k/uL Monocytes # 0.4 (0-1.0) k/uL Eosinophils # 0.1 (0-0.7) k/uL Basophils # 0.1 (0-0.2) k/uL Sodium 136 L (137-145) mmol/L Potassium 4.5 (3.5-5.1) mmol/L Chloride 101 (98-107) mmol/L Carbon Dioxide 33 H (22-30) mmol/L Anion Gap 2 mmol/L BUN 12 (9-20) mg/dL Creatinine 0.70 (0.66-1.25) mg/dL Est GFR (CKD-EPI)AfAm >90 (>60 ml/min/1.73 sqM) Est GFR (CKD-EPI)NonAf >90 (>60 ml/min/1.73 sqM) Glucose 103 H (74-99) mg/dL Calcium 9.3 (8.4-10.2) mg/dL Total Bilirubin 0.3 (0.2-1.3) mg/dL AST 257 H (17-59) U/L ALT 92 H (4-49) U/L Alkaline Phosphatase 54 (38-126) U/L Total Protein 6.1 L (6.3-8.2) g/dL Albumin 3.7 (3.5-5.0) g/dL Disposition Clinical Impression: Open blow-out fracture of right orbit, Lip laceration, Nasal bone fracture Disposition: HOME SELF-CARE Condition: Stable Instructions (If sedation given, give patient instructions): Facial Fracture (ED) Additional Instructions: Please return to the Emergency Department if symptoms worsen or any other concerns. Follow-up with ENT and ophthalmology within 2-4 days. Take antibiotics as directed until complete. Remove sutures in 4-5 days, can come back for suture removal. Prescriptions: Cephalexin [Keflex] 500 mg PO Q6HR 7 Days #28 cap Ibuprofen [Motrin] 800 mg PO Q6HR #30 tab Is patient prescribed a controlled substance at d/c from ED?: No Referrals: Erlin Arboleda MD [STAFF PHYSICIAN] - 1-2 days Tylor Epps MD [STAFF PHYSICIAN] - 1-2 days None,Stated [REFERRING] - 1-2 days Vasiliy Romero MD [STAFF PHYSICIAN] - 1-2 days Procedures - Laceration Laceration #1 Consent Obtained: verbal consent Indication: laceration Site: lip Size (cm): 2 Description: involves damari border Depth: simple, single layer Sedation/Analgesia: none Anesthetic Used: lidocaine 1% (Topical) Pre-repair: irrigated extensively Type of Sutures: nylon Size of Sutures: 6-0 Number of Sutures: 4 Technique: simple, interrupted Patient Tolerated Procedure: well, no complications
== END 2020-08-22 16:00 | disposition home or self-care (01) ==
LOC: EC 13:47
DX: S02.31XA Fracture of orbital floor, right side, initial encounter for closed fracture (principal); S02.2XXA Fracture of nasal bones, initial encounter for closed fracture; S01.511A Laceration without foreign body of lip, initial encounter; Z23 Encounter for immunization; Y04.0XXA Assault by unarmed brawl or fight, initial encounter
CPT/HCPCS: 12011; 36415; 70486; 80053; 85025; 90471; 90715; 99284

== ENCOUNTER 2020-11-22 17:36 | Emergency (ER) | payer BC, OTHER ==
[2020-11-22 17:44] VITALS: RESP 18
[2020-11-22] MEDS ORDERED: MORPHINE SULFATE 4 MG/ML SYRINGE IM STA (18:02)
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
--- NOTE | 2020-11-22 19:21 | XR ---
EXAMINATION TYPE: XR clavicle RT DATE OF EXAM: 11/22/2020 COMPARISON: NONE HISTORY: Pain. Trauma. TECHNIQUE: 2 views FINDINGS: There is oblique fracture of the lateral and of the right clavicle. There is 10 mm displace ment. There is no dislocation at the AC joint. Glenohumeral joint appears anatomic. IMPRESSION: Mildly displaced right clavicle fracture.
--- NOTE | 2020-11-22 19:22 | XR ---
EXAMINATION TYPE: XR chest 1V DATE OF EXAM: 11/22/2020 COMPARISON: 11/28/2016 HISTORY: Chest pain. Trauma. TECHNIQUE: Single view FINDINGS: Heart and mediastinum are normal. Lungs are clear. Diaphragm is normal. There is right clav icle fracture noted. IMPRESSION: No cardiopulmonary disease. Right clavicle fracture.
--- NOTE | 2020-11-22 19:23 | XR ---
EXAMINATION TYPE: XR shoulder complete RT DATE OF EXAM: 11/22/2020 COMPARISON: NONE HISTORY: Pain TECHNIQUE: 3 views FINDINGS: Glenohumeral joint is anatomic. There is oblique fracture of the lateral and of the right c lavicle. There is displacement up to 1 cm of the fragments. There is no dislocation. The proximal hum erus is intact. Scapula appears intact. IMPRESSION: Mildly displaced clavicle fracture.
[2020-11-22] MEDS ORDERED: HYDROmorphone 0.5 MG/0.5 ML SYRINGE IM STA (19:52)
[2020-11-22 20:22] VITALS: BP 156/96; PULSE 64; TEMP 97
== END 2020-11-22 20:26 | disposition home or self-care (01) ==
LOC: EC 17:36
DX: S42.001A Fracture of unspecified part of right clavicle, initial encounter for closed fracture (principal); V89.2XXA Person injured in unspecified motor-vehicle accident, traffic, initial encounter; M19.90 Unspecified osteoarthritis, unspecified site; F17.200 Nicotine dependence, unspecified, uncomplicated
CPT/HCPCS: 73000; 73030; 71045; 72125; 99284; 96372 ×2; J2270; J1170

== ENCOUNTER 2020-11-26 08:08 | Emergency (ER) | payer OTHER ==
[2020-11-26 08:14] VITALS: BP 125/77; PULSE 74; RESP 18; TEMP 97.8
[2020-11-26] MEDS ORDERED: LIDOCAINE 1% INJ 10MG/ML (20 ML MDV) SQ STA (08:43)
[2020-11-26] MEDS ORDERED: MORPHINE SULFATE 4 MG/ML SYRINGE IV STA (08:43)
[2020-11-26 09:15] LABS: Basophils % (A) 0 %; Eosinophils # (A) 0.1 k/uL (0-0.7); Eosinophils % (A) 2 %; Lymphocytes # (A) 2.4 k/uL (1.0-4.8); Lymphocytes % (A) 39 %; MCH 28.8 pg (25.0-35.0); MCHC 32.6 g/dL (31.0-37.0); MCV 88.4 fL (80.0-100.0); Mean Platelet Volume 7.1; Monocytes # (A) 0.3 k/uL (0-1.0); Monocytes % (A) 6 %; Neutrophils # (A) 3.2 k/uL (1.3-7.7); Neutrophils % (A) 52 %; Platelet Count 251 k/uL (150-450); RBC 4.86 m/uL (4.30-5.90); WBC 6.1 k/uL (3.8-10.6)
[2020-11-26 09:38] LABS: ALT 18 U/L (4-49); AST 21 U/L (17-59); African American GFR (CKD) >90 (>60 ml/min/1.73 sqM); Albumin 3.4 g/dL (3.5-5.0); Alkaline Phosphatase 65 U/L (38-126); Anion Gap 5 mmol/L; Blood Urea Nitrogen 12 mg/dL (9-20); Calcium 8.7 mg/dL (8.4-10.2); Carbon Dioxide 28 mmol/L (22-30); Chloride 106 mmol/L (98-107); Glucose 136 mg/dL (74-99); Non-African American GFR(CKD) >90 (>60 ml/min/1.73 sqM); Potassium 4.2 mmol/L (3.5-5.1); Sodium 139 mmol/L (137-145); Total Bilirubin 0.2 mg/dL (0.2-1.3); Total Protein 5.8 g/dL (6.3-8.2)
--- NOTE | 2020-11-26 10:00 | ED ---
Skin/Abscess/FB HPI - General Chief complaint: Skin/Abscess/Foreign Body Stated complaint: Spider bite Time Seen by Provider: 11/26/20 08:30 Source: patient, RN notes reviewed Mode of arrival: ambulatory Limitations: no limitations - History of Present Illness Initial comments: Patient is a 45-year-old male that presents to emergency department with a p osterior knee abscess. Presented thought was a spider bite. He did note that it was very sensitive to the touch red swollen tender. He did note that it decreases range of motion secondary to pain. He did report that he has a history of IV drug use but is not done pain for years. He did note that he does have a history of abscesses. He denied any chest pain first breath headache nausea vomiting diarrhea constipation fever fatigue chills. - Related Data Previous Rx's Medication Instructions Recorded Nicotine 14Mg/24Hr Patch [Habitrol] 1 patch TRANSDERM DAILY patch 06/02/20 Paliperidone [Invega] 3 mg PO DAILY #30 tab.er.24 06/02/20 Cephalexin [Keflex] 500 mg PO Q6HR 7 Days #28 cap 08/22/20 Ibuprofen [Motrin] 800 mg PO Q6HR #30 tab 08/22/20 HYDROcodone/APAP 5-325MG [[place] 1 tab PO Q4HR PRN 3 Days #18 tab 11/22/20 5-325] Sulfamethox-Tmp 800-160Mg [Bactrim 1 each PO Q12HR #20 tab 11/26/20 Ds] Allergies Allergy/AdvReac Type Severity Reaction Status Date / Time No Known Allergies Allergy Verified 11/26/20 08:14 Review of Systems ROS Statement: Those systems with pertinent positive or pertinent negative responses have been documented in the HPI. ROS Other: All systems not noted in ROS Statement are negative. Past Medical History Past Medical History: Osteoarthritis (OA) Additional Past Medical History / Comment(s): right clavicle fracture History of Any Multi-Drug Resistant Organisms: MRSA Date of last positivie culture/infection: 2005 MDRO Source:: right knee Past Surgical History: Orthopedic Surgery Past Psychological History: No Psychological Hx Reported Smoking Status: Current every day smoker Past Alcohol Use History: None Reported Past Drug Use History: None Reported General Exam Limitations: no limitations General appearance: alert, in no apparent distress Head exam: Present: atraumatic, normocephalic, normal inspection Eye exam: Present: normal appearance, PERRL, EOMI. Absent: scleral icterus, conjunctival injection, periorbital swelling Neck exam: Present: normal inspection Respiratory exam: Present: normal lung sounds bilaterally. Absent: respiratory distress, wheezes, rales, rhonchi, stridor Cardiovascular Exam: Present: regular rate, normal rhythm, normal heart sounds. Absent: systolic murmur, diastolic murmur, rubs, gallop, clicks GI/Abdominal exam: Present: soft, normal bowel sounds. Absent: distended, tenderness, guarding, rebound, rigid Extremities exam: Present: normal inspection, full ROM, normal capillary refill. Absent: tenderness, pedal edema, joint swelling, calf tenderness Neurological exam: Present: alert, oriented X3, CN II-XII intact Psychiatric exam: Present: normal affect, normal mood Skin exam: Present: warm, dry, intact, normal color. Absent: rash Expanded Type of lesion: Present: abscess (To the posterior right knee approximately 3 cm x 3 cm, erythematous tender.) Course Vital Signs 11/26/20 08:09 Temperature 97.8 F Pulse Rate 74 Respiratory 18 Rate Blood Pressure 125/77 O2 Sat by Pulse 98 Oximetry Procedures - Incision & Drainage Consent Obtained: verbal consent Site: lower extremity (Steering knee) Size (cm): 3 Anesthetic Used: lidocaine 1% I&D Cleaning Method: Betadine Sterile Field Used?: Yes Scalpel Used: #11 Needle Aspiration Performed?: No I&D Drainage Obtained: Pus, Blood Packing: Iodoform Culture Obtained?: Yes Patient Tolerated Procedure: well, no complications Medical Decision Making - Medical Decision Making 45-year-old male with a abscess to the posterior right knee. Lidocaine, 4 mg morphine, cultures ordered. Patient tolerated incision and drainage while with no [place] medications. Case discussed with Dr. Mitchell, patient discharge home with follow-up to primary care and parer in the next 1-2 days - Lab Data Result diagrams: 11/26/20 08:59 11/26/20 08:59 Lab Results 11/26/20 11/26/20 Range/Units 08:59 08:59 WBC 6.1 (3.8-10.6) k/uL RBC 4.86 (4.30-5.90) m/uL Hgb 14.0 (13.0-17.5) gm/dL Hct 43.0 (39.0-53.0) % MCV 88.4 (80.0-100.0) fL MCH 28.8 (25.0-35.0) pg MCHC 32.6 (31.0-37.0) g/dL RDW 13.0 (11.5-15.5) % Plt Count 251 (150-450) k/uL MPV 7.1 Neutrophils % 52 % Lymphocytes % 39 % Monocytes % 6 % Eosinophils % 2 % Basophils % 0 % Neutrophils # 3.2 (1.3-7.7) k/uL Lymphocytes # 2.4 (1.0-4.8) k/uL Monocytes # 0.3 (0-1.0) k/uL Eosinophils # 0.1 (0-0.7) k/uL Basophils # 0.0 (0-0.2) k/uL Sodium 139 (137-145) mmol/L Potassium 4.2 (3.5-5.1) mmol/L Chloride 106 (98-107) mmol/L Carbon Dioxide 28 (22-30) mmol/L Anion Gap 5 mmol/L BUN 12 (9-20) mg/dL Creatinine 0.76 (0.66-1.25) mg/dL Est GFR (CKD-EPI)AfAm >90 (>60 ml/min/1.73 sqM) Est GFR (CKD-EPI)NonAf >90 (>60 ml/min/1.73 sqM) Glucose 136 H (74-99) mg/dL Calcium 8.7 (8.4-10.2) mg/dL Total Bilirubin 0.2 (0.2-1.3) mg/dL AST 21 (17-59) U/L ALT 18 (4-49) U/L Alkaline Phosphatase 65 (38-126) U/L Total Protein 5.8 L (6.3-8.2) g/dL Albumin 3.4 L (3.5-5.0) g/dL Disposition Clinical Impression: Abscess of right knee Disposition: HOME SELF-CARE Condition: Stable Additional Instructions: Please return to the Emergency Department if symptoms worsen or any other concerns. Follow-up with primary care in the next 1-2 days, to get packing redone. Take antibiotics as prescribed until complete. Keep area clean and dry. Take Motrin as needed for pain control. Is patient prescribed a controlled substance at d/c from ED?: No Referrals: Yi Tucker MD [Primary Care Provider] - 1-2 days Time of Disposition: 09:59
== END 2020-11-26 10:06 | disposition home or self-care (01) ==
LOC: EC 08:08
DX: L02.415 Cutaneous abscess of right lower limb (principal); F17.200 Nicotine dependence, unspecified, uncomplicated; M19.90 Unspecified osteoarthritis, unspecified site; Z79.1 Long term (current) use of non-steroidal anti-inflammatories (NSAID)
CPT/HCPCS: 99283 ×2; 10061 ×2; 96374; 36415; 80053; 85025; 87070; 87205; 87075; 87077; 87186; J2270; J2001

== ENCOUNTER → 2020-11-26 | Outpatient (CLI) | payer OTHER ==
--- NOTE | 2020-11-26 17:00 | CT ---
EXAMINATION TYPE: CT shoulder RT wo con DATE OF EXAM: 11/26/2020 COMPARISON: HISTORY: Right shoulder pain CT DLP: 420 mGycm Automated exposure control for dose reduction was used. Contrast: None Technique: Axial images 2 mm thick sections. Reconstructed images in the coronal and sagittal plane. Three-D reconstructed images performed by the technologist on a separate computer presented. FINDINGS: There is a comminuted fracture of the distal diaphyseal clavicle. Fracture fragments are displaced fr om the fracture site. There is a cortical shard extending from the fracture site directed posteriorly . A similar smaller cortical shard is displaced anterior to the distal diaphyseal clavicle and the me dial aspect directed anteriorly towards the skin. Broad diastases of the comminuted fractures evident . A third large shard appears to lie inferior to the fracture site. The acromioclavicular junction and sternoclavicular junction appear intact. The scapula appears intact. Glenohumeral junction is unremarkable. Proximal humerus is normal. No acu te rib fractures are evident. IMPRESSION: 1. COMMINUTED FRACTURE DISTAL DIAPHYSEAL SCAPULA WITH DISPLACEMENT OF MULTIPLE FRACTURE FRAGMENTS
== END | disposition home or self-care (01) ==
LOC: RADCTMAIN 07:50
PROVIDERS: ATTEND Orthopaedic Surgery
DX: S42.191A Fracture of other part of scapula, right shoulder, initial encounter for closed fracture (principal)

== ENCOUNTER 2020-11-28 16:31 | Emergency (ER) | payer OTHER ==
[2020-11-28 16:54] VITALS: RESP 18; TEMP 98
[2020-11-28 17:12] LABS: Basophils % (A) 0 %; Eosinophils # (A) 0.1 k/uL (0-0.7); Eosinophils % (A) 1 %; HGB 14.4 gm/dL (13.0-17.5); Lymphocytes # (A) 1.3 k/uL (1.0-4.8); Lymphocytes % (A) 24 %; MCH 30.2 pg (25.0-35.0); MCV 86.3 fL (80.0-100.0); Mean Platelet Volume 6.6; Monocytes # (A) 0.3 k/uL (0-1.0); Monocytes % (A) 6 %; Neutrophils # (A) 3.7 k/uL (1.3-7.7); Neutrophils % (A) 68 %; Platelet Count 262 k/uL (150-450); RBC 4.75 m/uL (4.30-5.90); RDW 12.3 % (11.5-15.5); WBC 5.4 k/uL (3.8-10.6)
[2020-11-28 17:27] LABS: ALT 90 U/L (4-49); AST 100 U/L (17-59); African American GFR (CKD) >90 (>60 ml/min/1.73 sqM); Albumin 4.2 g/dL (3.5-5.0); Alcohol <10 mg/dL; Alkaline Phosphatase 73 U/L (38-126); Anion Gap 6 mmol/L; Blood Urea Nitrogen 17 mg/dL (9-20); Calcium 9.8 mg/dL (8.4-10.2); Carbon Dioxide 29 mmol/L (22-30); Chloride 101 mmol/L (98-107); Glucose 104 mg/dL (74-99); Non-African American GFR(CKD) >90 (>60 ml/min/1.73 sqM); Potassium 4.6 mmol/L (3.5-5.1); Sodium 136 mmol/L (137-145); Total Bilirubin 0.4 mg/dL (0.2-1.3); Total Protein 6.7 g/dL (6.3-8.2)
--- NOTE | 2020-11-28 19:49 | CT ---
EXAMINATION TYPE: CT ChestAbdPelvis w con DATE OF EXAM: 11/28/2020 COMPARISON: None HISTORY: Trauma. Right scapular pain. CT DLP: 1904.1 mGycm Automated exposure control for dose reduction was used. CONTRAST: Performed with IV Contrast, patient injected with 100 mL of Isovue 300. Images obtained from the thoracic inlet to the floor the pelvis with IV contrast. FINDINGS: The lungs are clear of infiltrate. There is no pleural effusion or pneumothorax. Heart size is normal . There is no pericardial effusion. There is no mediastinal adenopathy. There are no hilar masses. Th oracic aorta is intact. There is no aneurysm or dissection. Liver spleen stomach pancreas gallbladder appear normal. The bile ducts are not dilated. There is no adrenal mass. Kidneys show satisfactory contrast opacification. There is no hydronephrosi s. Ureters are not dilated. Bladder distends smoothly. There is no inguinal hernia. There is no free fluid in the pelvis. There is no evidence of pelvic mass. There is no mesenteric edema. There is no ascites or free air. There is no bowel obstruction. Appendi x is posterior and appears normal. The thoracic and lumbar vertebra show normal alignment. Disc spaces are fairly normal. There is no co mpression fracture. There is L5 spondylolysis with a 2 mm L5-S1 spondylolisthesis. Sternum is intact. Bony pelvis is intact. The hip joints are intact. There is no hip dysplasia. There is mid shaft frac ture right clavicle with comminution. There is separation of the fragments up to 4 cm. Impression: Comminuted right clavicle fracture. No shoulder joint fracture seen.. No acute abnormality within the chest abdomen pelvis.
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
[2020-11-28 19:57] LABS: Appearance,Urine Clear (Clear); Bilirubin,Urine Negative (Negative); Blood,Urine Negative (Negative); Color,Urine Yellow; Glucose,Urine (UA) Negative (Negative); Ketones,Urine Negative (Negative); Leukocyte Esterase,Urine Negative (Negative); Nitrite,Urine Negative (Negative); Protein,Urine Negative (Negative); Specific Gravity,Urine 1.028 (1.001-1.035); Urobilinogen,Urine <2.0 mg/dL (<2.0)
--- NOTE | 2020-11-28 20:06 | CT ---
EXAMINATION TYPE: CT thor lumbar spine w con DATE OF EXAM: 11/28/2020 COMPARISON: None HISTORY: Trauma. Right scapular pain. CT DLP: mGycm Automated exposure control for dose reduction was used. CONTRAST: Performed with IV Contrast, patient injected with mL of Isovue 300. Images obtained from the level of T1-S1 vertebra with no contrast. Thoracic and lumbar vertebra have fairly normal alignment. There is no compression fracture. There is L5 spondylolysis without significant spondylolisthesis. There is a few millimeter subluxation. The p osterior elements are otherwise intact. There is no thoracic paraspinal mass. I see no focal bone thompson truction. Sacroiliac joints are intact. IMPRESSION: L5 spondylolysis. No acute bony abnormality. No compression fracture. Right clavicle comminuted fract ure is again noted.
[2020-11-28 20:08] LABS: Amphetamine Screen,Urine Detected (NotDetected); Barbiturate Screen,Urine Not Detected (NotDetected); Benzodiazepines Screen,Urine Detected (NotDetected); Cocaine Screen,Urine Not Detected (NotDetected); Methadone Screen, Urine Not Detected (NotDetected); Opiate Screen,Urine Detected (NotDetected); Oxycodone Screen, Urine Not Detected (NotDetected); Phencyclidine Screen,Urine Not Detected (NotDetected); Tricyclic Antidepressant,Urine Not Detected (NotDetected); Urn Cannabinoid Scrn Detected (NotDetected)
[2020-11-28 21:04] VITALS: BP 152/79; PULSE 76
== END 2020-11-28 21:03 | disposition home or self-care (01) ==
LOC: EC 16:31
DX: S42.001A Fracture of unspecified part of right clavicle, initial encounter for closed fracture (principal); F19.10 Other psychoactive substance abuse, uncomplicated; M17.11 Unilateral primary osteoarthritis, right knee; F17.200 Nicotine dependence, unspecified, uncomplicated; V86.55XA Driver of 3- or 4- wheeled all-terrain vehicle (ATV) injured in nontraffic accident, initial encounter
CPT/HCPCS: 36415; 80053; 85025; 81003; 80306; 72129; 72132; 71260; 74177; 99284; G0480; Q9967; 80320

== ENCOUNTER 2021-01-10 01:15 | Observation (INO) | payer OTHER ==
[2021-01-10] MEDS ORDERED: MORPHINE SULFATE 4 MG/ML SYRINGE IV STA (01:40)
[2021-01-10] MEDS ORDERED: SODIUM CHLORIDE 0.9% 500 ML 500 ML IV STA (01:40)
[2021-01-10] MEDS ORDERED: SODIUM CHLORIDE 0.9% 1,000 ML IV STA ×2 (01:40)
--- NOTE | 2021-01-10 01:42 | ED ---
Male Urogenital HPI - General Chief complaint: Urogenital Stated complaint: Groin Pain Time Seen by Provider: 01/10/21 01:19 Source: patient, EMS, RN notes reviewed, old records reviewed Mode of arrival: ambulatory Limitations: no limitations - History of Present Illness Initial comments: This is a 45-year-old male to the ER for evaluation patient has severe severe scrotal pain scrotal swelling and erythema and redness significant swelling of his scrotum the worst part being the pain. Severe edema. Patient is afebrile denies drug or alcohol use. Patient does have history of psychiatric illness recent long incarceration denying any recent drug use and patient did have a laceration of his finger which is to be improving appropriately. A few months ago patient also shoulder surgery which is also healing appropriately. Patient does not have fevers but does state that he feels a fluid the Gordon waves body MD Complaint: testicle pain, testicle swelling -: days(s) (2) Location: penis, right testicle, left testicle, right inguinal region, left inguinal region, abdomen Radiation: none Severity: moderate Severity scale (1-10): 7 Quality: aching, sharp Consistency: constant Improves with: none Worsens with: urination new medication Reports: swelling, rash, urinary retention, nausea/vomiting - Related Data Previous Rx's Medication Instructions Recorded Nicotine 14Mg/24Hr Patch [Habitrol] 1 patch TRANSDERM DAILY patch 06/02/20 Paliperidone [Invega] 3 mg PO DAILY #30 tab.er.24 06/02/20 Cephalexin [Keflex] 500 mg PO Q6HR 7 Days #28 cap 08/22/20 Ibuprofen [Motrin] 800 mg PO Q6HR #30 tab 08/22/20 HYDROcodone/APAP 5-325MG [Daisy 1 tab PO Q4HR PRN 3 Days #18 tab 11/22/20 5-325] Sulfamethox-Tmp 800-160Mg [Bactrim 1 each PO Q12HR #20 tab 11/26/20 Ds] Allergies Allergy/AdvReac Type Severity Reaction Status Date / Time No Known Allergies Allergy Verified 01/10/21 01:23 Review of Systems ROS Statement: Those systems with pertinent positive or pertinent negative responses have been documented in the HPI. ROS Other: All systems not noted in ROS Statement are negative. Past Medical History Past Medical History: Osteoarthritis (OA) Additional Past Medical History / Comment(s): right clavicle fracture History of Any Multi-Drug Resistant Organisms: MRSA Date of last positivie culture/infection: 11/26/20 MDRO Source:: Right Knee Past Surgical History: Orthopedic Surgery Past Psychological History: No Psychological Hx Reported Smoking Status: Current every day smoker Past Alcohol Use History: None Reported Past Drug Use History: None Reported General Exam Limitations: no limitations General appearance: alert, in no apparent distress, anxious, in distress Head exam: Present: atraumatic, normocephalic, normal inspection Eye exam: Present: normal appearance, PERRL, EOMI. Absent: scleral icterus, conjunctival injection, periorbital swelling ENT exam: Present: normal exam, mucous membranes moist Neck exam: Present: normal inspection. Absent: tenderness, meningismus, lymphadenopathy Respiratory exam: Present: normal lung sounds bilaterally. Absent: respiratory distress, wheezes, rales, rhonchi, stridor Cardiovascular Exam: Present: regular rate, normal rhythm, normal heart sounds. Absent: systolic murmur, diastolic murmur, rubs, gallop, clicks GI/Abdominal exam: Present: soft, normal bowel sounds. Absent: distended, tenderness, guarding, rebound, rigid exam: Present: testicular tenderness, scrotal swelling External exam: Present: erythema, swelling Extremities exam: Present: normal inspection, full ROM, normal capillary refill. Absent: tenderness, pedal edema, joint swelling, calf tenderness Back exam: Present: normal inspection Neurological exam: Present: alert, oriented X3, CN II-XII intact Psychiatric exam: Present: normal affect, normal mood Skin exam: Present: warm, dry, intact, normal color. Absent: rash Course Vital Signs 01/10/21 01:17 Temperature 97.6 F Pulse Rate 98 Respiratory 20 Rate Blood Pressure 135/90 O2 Sat by Pulse 100 Oximetry - Reevaluation(s) Reevaluation #1: 01/10/21 02:18 Attic record is reviewed 01/10/21 02:18 Prior ER visit is also been reviewed Reevaluation #2: 01/10/21 02:18 Patient's pain is improved Reevaluation #3: 01/10/21 03:15 Patient informed of results questions answered Reevaluation #4: 01/10/21 03:15 Symptoms improved - Consultations Consultation #1: Spoke with farida tang for admission Medical Decision Making - Medical Decision Making 3 male with significant scrotal cellulitis and swelling. Significant scrotal edema, patient will be given IV antibiotics for evaluation and treatment - Lab Data Result diagrams: 01/10/21 01:44 01/10/21 01:44 Lab Results 01/10/21 01/10/21 01/10/21 Range/Units 01:44 01:44 01:44 WBC 13.1 H (3.8-10.6) k/uL RBC 5.04 (4.30-5.90) m/uL Hgb 14.8 (13.0-17.5) gm/dL Hct 42.9 (39.0-53.0) % MCV 85.2 (80.0-100.0) fL MCH 29.5 (25.0-35.0) pg MCHC 34.6 (31.0-37.0) g/dL RDW 12.8 (11.5-15.5) % Plt Count 244 (150-450) k/uL MPV 7.0 Neutrophils % 84 % Lymphocytes % 9 % Monocytes % 5 % Eosinophils % 0 % Basophils % 1 % Neutrophils # 11.0 H (1.3-7.7) k/uL Lymphocytes # 1.1 (1.0-4.8) k/uL Monocytes # 0.7 (0-1.0) k/uL Eosinophils # 0.1 (0-0.7) k/uL Basophils # 0.1 (0-0.2) k/uL Sodium 135 L (137-145) mmol/L Potassium 3.5 (3.5-5.1) mmol/L Chloride 96 L (98-107) mmol/L Carbon Dioxide 28 (22-30) mmol/L Anion Gap 11 mmol/L BUN 9 (9-20) mg/dL Creatinine 0.72 (0.66-1.25) mg/dL Est GFR (CKD-EPI)AfAm >90 (>60 ml/min/1.73 sqM) Est GFR (CKD-EPI)NonAf >90 (>60 ml/min/1.73 sqM) Glucose 124 H (74-99) mg/dL Plasma Lactic Acid Yobany 1.7 (0.7-2.0) mmol/L Calcium 10.0 (8.4-10.2) mg/dL Phosphorus 2.7 (2.5-4.5) mg/dL Magnesium 1.8 (1.6-2.3) mg/dL Total Bilirubin 1.2 (0.2-1.3) mg/dL AST 26 (17-59) U/L ALT 20 (4-49) U/L Alkaline Phosphatase 101 (38-126) U/L Total Protein 7.2 (6.3-8.2) g/dL Albumin 4.7 (3.5-5.0) g/dL - Radiology Data Radiology results: report reviewed (CT pelvis does show significant likely cellulitis of scrotal and groin area), image reviewed Disposition Clinical Impression: Polysubstance abuse, Cellulitis of scrotum, Cellulitis of groin Disposition: ADMITTED IP TO THIS HOSP Condition: Good Is patient prescribed a controlled substance at d/c from ED?: No Referrals: Yi Tucker MD [Primary Care Provider] - 1-2 days
[2021-01-10 02:20] LABS: Basophils # (A) 0.1 k/uL (0-0.2); Basophils % (A) 1 %; Eosinophils # (A) 0.1 k/uL (0-0.7); Eosinophils % (A) 0 %; HCT 42.9 % (39.0-53.0); HGB 14.8 gm/dL (13.0-17.5); Lymphocytes # (A) 1.1 k/uL (1.0-4.8); Lymphocytes % (A) 9 %; MCH 29.5 pg (25.0-35.0); MCHC 34.6 g/dL (31.0-37.0); MCV 85.2 fL (80.0-100.0); Monocytes # (A) 0.7 k/uL (0-1.0); Monocytes % (A) 5 %; Neutrophils % (A) 84 %; Platelet Count 244 k/uL (150-450); RBC 5.04 m/uL (4.30-5.90); RDW 12.8 % (11.5-15.5); WBC 13.1 k/uL (3.8-10.6)
[2021-01-10 02:32] LABS: ALT 20 U/L (4-49); AST 26 U/L (17-59); African American GFR (CKD) >90 (>60 ml/min/1.73 sqM); Albumin 4.7 g/dL (3.5-5.0); Alkaline Phosphatase 101 U/L (38-126); Anion Gap 11 mmol/L; Blood Urea Nitrogen 9 mg/dL (9-20); Carbon Dioxide 28 mmol/L (22-30); Chloride 96 mmol/L (98-107); Glucose 124 mg/dL (74-99); Magnesium 1.8 mg/dL (1.6-2.3); Non-African American GFR(CKD) >90 (>60 ml/min/1.73 sqM); Phosphorus 2.7 mg/dL (2.5-4.5); Potassium 3.5 mmol/L (3.5-5.1); Sodium 135 mmol/L (137-145); Total Bilirubin 1.2 mg/dL (0.2-1.3); Total Protein 7.2 g/dL (6.3-8.2)
[2021-01-10] MEDS ORDERED: HYDROmorphone 1 MG/ML 1 ML SYRINGE IVP STA (02:41)
[2021-01-10] MEDS ORDERED: LORazepam 2 MG/ML INJ IV STA (02:41)
--- NOTE | 2021-01-10 02:57 | CT ---
EXAMINATION TYPE: CT pelvis w con DATE OF EXAM: 01/10/2021 COMPARISON: None HISTORY: pain CT DLP: 1176.8 mGycm Automated exposure control for dose reduction was used. CONTRAST: Performed with IV Contrast, patient injected with 100 mL of Isovue 300. Images obtained from the iliac crests to the proximal femurs with IV contrast. There is no free fluid in the pelvis. Bladder distends smoothly. There is mild bilateral fat-containi ng inguinal hernias. There is no evidence of a pelvic mass. Appendix appears normal. There is diffuse anterior scrotal edema. I do not see a definite hydrocele. There is anterior scrotal wall thickening that measures up to 3.5 cm. The bony structures appear intact. Proximal femurs and h ip joints are intact.: IMPRESSION: Significant anterior scrotal swelling that appears to be outside of the scrotal sac. This could relat e to severe cellulitis or cutaneous abscess.
[2021-01-10] MEDS ORDERED: VANCOMYCIN IV PER PHARMACY 1 EACH MISC MISCELLANE PRN (03:13)
[2021-01-10] MEDS ORDERED: VANCOMYCIN 1,500 MG in SODIUM CHLORIDE 0.9% 250 ML IVPB ONE (03:30)
[2021-01-10 06:34] LABS: Appearance,Urine Clear (Clear); Bilirubin,Urine Negative (Negative); Blood,Urine Negative (Negative); Color,Urine Yellow; Glucose,Urine (UA) Negative (Negative); Ketones,Urine Negative (Negative); Leukocyte Esterase,Urine Negative (Negative); Nitrite,Urine Negative (Negative); PH, Urine 6.5 (5.0-8.0); Protein,Urine Negative (Negative); Urobilinogen,Urine <2.0 mg/dL (<2.0)
[2021-01-10] MEDS ORDERED: NYSTAT-TRIAMCIN 100,000-0.1 UNIT/GM-% OINT 30 GM TUBE TOPICAL SCH (09:00)
[2021-01-10] MEDS: TRIAMCINOLONE ACET 0.1% OINTMENT 15 GM TUBE TOPICAL SCH ×2 (09:29→21:19)
[2021-01-10] MEDS: NYSTATIN 100,000 UNIT/GM OINT 30 GM TUBE TOPICAL SCH ×2 (09:29→21:19)
[2021-01-10] MEDS ORDERED: CYCLOBENZAPRINE 10 MG TAB PO PRN (10:41)
[2021-01-10] MEDS: AMPICILLIN-SULBACTAM 3 GM in SODIUM CHLORIDE 0.9% 100 ML IVPB SCH ×2 (14:14→18:41)
[2021-01-10] MEDS: VANCOMYCIN 1,500 MG in SODIUM CHLORIDE 0.9% 250 ML IVPB SCH ×2 (15:26→21:20)
[2021-01-10] MEDS ORDERED: ALPRAZolam 0.25 MG TAB PO PRN (16:25)
[2021-01-10] MEDS ORDERED: HYDROcodone/APAP 5-325MG 1 EACH TAB PO PRN (16:25)
[2021-01-10] MEDS: HYDROmorphone 1 MG/ML 1 ML SYRINGE IVP PRN (18:35)
--- NOTE | 2021-01-10 19:28 | HP ---
HISTORY AND PHYSICAL DATE OF SERVICE: 01/10/2021. CHIEF COMPLAINT: Pain and swelling around the scrotum. HISTORY: This 45-year-old gentleman with a past history of DJD, right clavicle fracture, history of MRSA, history of methamphetamine as well as drug abuse related psychosis, being followed by Dr. Yi Tucker in the outpatient setting, complaining of scrotal pain and erythema for the last several days. The patient also has significant edema. The patient had a long history of incarceration apparently. The patient had shoulder surgery a few months ago. The patient had right clavicle fracture. The patient came to the ER and was admitted for evaluation and treatment. The scrotal and the inguinal suprapubic area is tender and erythematous and CT scan also showed some possible cellulitis. Patient started on broad spectrum IV antibiotics. Evaluation by Infectious Disease also has been sought. There is no history of any fever, rigors, chills at this time. PAST MEDICAL HISTORY: History of DJD, history of polysubstance abuse, right clavicle fracture, history of MRSA. MEDICATIONS: Home medications are: Kenalog lotion, Paxil, Ultravate, Flexeril, clindamycin. ALLERGIES: None. FAMILY HISTORY: No history of heart disease or strokes in the family. SOCIAL HISTORY: History of smoking. Previous history of substance abuse as mentioned earlier. REVIEW OF SYSTEMS: ENT: No diminished vision. No diminished hearing. CARDIOVASCULAR: No angina or palpitations. RESPIRATIONS: No cough. GI as mentioned earlier. mentioned earlier. NERVOUS SYSTEM: No numbness, weakness. ALLERGY/IMMUNOLOGY: No asthma or hayfever. MUSCULOSKELETAL: As mentioned earlier. HEMATOLOGY/ONCOLOGY: No history of anemia. ENDOCRINE: No history of diabetes or hypothyroidism. CONSTITUTIONAL: As mentioned earlier. DERMATOLOGY: Negative. RHEUMATOLOGY: Negative. PSYCHIATRIC: As mentioned earlier. PHYSICAL EXAMINATION: Alert and oriented times two. Pulse 103. Blood pressure 137/84, respirations 18, temperature 98.5, pulse ox 99% on room air. HEENT: Conjunctivae normal. NECK: No JVD. RESPIRATORY: Breath sounds diminished at the bases. No rhonchi. No crackles. ABDOMEN: Soft, nontender. No mass palpable. LEGS: No edema. No swelling. NERVOUS SYSTEM: Higher functions as mentioned. Moves all 4 limbs. No focal motor or sensory deficits. LYMPHATICS: No lymph nodes palpable in the neck, axillae or groin. SKIN: Significant cellulitis and tenderness over the scrotal area, penile area and suprapubic area present. JOINTS: No active deforming arthropathy. LAB STUDIES: WBC 13.1. Sodium 135. ASSESSMENT: 1. Severe scrotal cellulitis with severe pain with failure of outpatient treatment with severe acute respiratory syndrome. 2. Increased WBC. 3. Hyponatremia. 4. Increased random blood glucose. 5. History of polysubstance abuse, associated psychosis previously. 6. History of degenerative joint disease. 7. History of right clavicle fracture. 8. History of MRSA. 9. History of nicotine dependence, continued ongoing. RECOMMENDATIONS AND DISCUSSION: This 45-year-old gentleman who presented with multiple complex medical issues, we will monitor the patient closely. The patient was started on Unasyn and vancomycin. Infectious evaluation follow up. Obtain cultures. Prognosis guarded because of multiple complex medical issues. A copy of dictation being forwarded to Dr. Yi Tucker who is the primary physician. MMODL / IJN: [id number] /
[2021-01-10] MEDS: HEPARIN SODIUM,PORCINE/PF 5,000 UNIT/0.5 ML SYRINGE SQ SCH (21:19)
[2021-01-10] MEDS: NICOTINE 14MG/24HR PATCH TRANSDERM SCH (21:19)
[2021-01-10] MEDS: CLOBETASOL PROP 0.05% CR 15GM TOPICAL SCH (21:19)
--- NOTE | 2021-01-10 23:44 | P.CONS ---
History of Present Illness - Reason for Consult Consult date: 01/10/21 Scrotal cellulitis Requesting physician: Miguelina Yuan - Chief Complaint Scrotal pain and swelling x few days - History of Present Illness Patient is a 45-year-old male presenting to the ER with for evaluation of scrotal pain and swelling that the pain has been getting worse for the last few weeks patient mention he was recently admitted to the hospital for the similar problem however I do not see any documentation of the patient being admitted for scrotal cellulitis, patient may still remains to be swelling and pain to the scrotal area, patient describes the pain to be throbbing and intensity 7 out of 10 and no radiation, patient did not have any open wound or any drainage patient did have history of substance abuse on presentation the hospital the patient was afebrile patient did have white count of 13.1 with a left shift creatinine was normal urine was negative patient did have a pelvic CT significant intrascrotal swelling appears to be worsened no scrotal sac could relate to severe cellulitis or cutaneous abscess patient has been admitted to [facility] he was started on Unasyn and vancomycin infectious disease was consulted for further management of antibiotic therapy, Review of Systems Positive point has been mentioned in the HPI rest of the systems are negative Past Medical History Past Medical History: Osteoarthritis (OA) Additional Past Medical History / Comment(s): right clavicle fracture History of Any Multi-Drug Resistant Organisms: MRSA Year Discovered:: 11/26/20 MDRO Source:: Right Knee Past Surgical History: Orthopedic Surgery Past Psychological History: No Psychological Hx Reported Smoking Status: Current every day smoker Past Alcohol Use History: None Reported Past Drug Use History: None Reported Medications and Allergies Home Medications Medication Instructions Recorded Confirmed Type Clindamycin Phosphate 1 applic TOPICAL BID PRN 01/10/21 01/10/21 History Cyclobenzaprine [Flexeril] 10 mg PO TID PRN 01/10/21 01/10/21 History Halobetasol Propionate [Ultravate] 1 applic TOPICAL BID 01/10/21 01/10/21 History PARoxetine [Paxil] 20 mg PO DAILY 01/10/21 01/10/21 History Triamcinolone 0.1% Lotion [Kenalog 1 applic TOPICAL BID 01/10/21 01/10/21 History 0.1% Lotion] Allergies Allergy/AdvReac Type Severity Reaction Status Date / Time No Known Allergies Allergy Verified 01/10/21 09:04 Physical Exam Vitals: Vital Signs Temp Pulse Pulse Resp BP BP Pulse Ox 01/10/21 07:00 97.9 F 80 18 145/87 96 01/10/21 04:10 98.5 F 92 18 157/96 98 01/10/21 03:00 97.8 F 89 22 156/88 97 01/10/21 01:17 97.6 F 98 20 135/90 100 Intake and Output 01/09/21 01/10/21 01/10/21 22:59 06:59 14:59 Output Total 0 Balance 0 Output: Stool 0 Other: Voiding Method Toilet # Voids 1 # Bowel Movements 0 Weight 100.244 kg GENERAL DESCRIPTION: Middle-aged male lying in bed, no distress. No tachypnea or accessory muscle of respiration use. HEENT: Shows Pallor , no scleral icterus. Oral mucous membrane is dry. No pharyngeal erythema or thrush NECK: Trachea central, no thyromegaly. LUNGS: Unlabored breathing. Clear to auscultation anteriorly. No wheeze or crackle. HEART: S1, S2, regular rate and rhythm. No loud murmur ABDOMEN: Soft, no tenderness , guarding or rigidity, no organomegaly : Scrotal swelling and tenderness to touch EXTREMITIES: No edema of feet. SKIN: No rash, no masses palpable. NEUROLOGICAL: The patient is sleepy , lethargic but arousable Results CBC & Chem 7: 01/10/21 01:44 01/10/21 01:44 Labs: Abnormal Lab Results - Last 24 Hours (Table) 01/10/21 01/10/21 01/10/21 Range/Units 01:40 01:44 01:44 WBC 13.1 H (3.8-10.6) k/uL Neutrophils # 11.0 H (1.3-7.7) k/uL Sodium 135 L (137-145) mmol/L Chloride 96 L (98-107) mmol/L Glucose 124 H (74-99) mg/dL Ur Specific [place] 1.050 H (1.001-1.035) Assessment and Plan Assessment: patient presented to hospital with scrotal pain and swelling in this patient symptom has been going on for few days 2 weeks, patient denies history of any trauma patient did not have any fever however did have elevated white count with abnormal CT of the pelvic area concerning for scrotal abscess possibly related to the gram-positive skin sonia less likely gram-negative infection (1) Cellulitis of scrotum Current Visit: Yes Status: Acute Code(s): N49.2 - INFLAMMATORY DISORDERS OF SCROTUM SNOMED Code(s): 83940011 Plan: 1-patient will benefit from urology evaluation and possible drainage of the abscess 2-vancomycin pharmacy to dose her with a target trough of 15 while watching her kidney function and Vanco trough closely. And Unasyn should provide adequate antibiotic coverage We will follow on clinical condition and cultures to further adjust medication if needed Thank you for this consultation we will follow the patient along with you Time with Patient: Greater than 30
[2021-01-11] MEDS: AMPICILLIN-SULBACTAM 3 GM in SODIUM CHLORIDE 0.9% 100 ML IVPB SCH ×4 (00:33→18:05)
[2021-01-11] MEDS: VANCOMYCIN 1,500 MG in SODIUM CHLORIDE 0.9% 250 ML IVPB SCH ×3 (05:46→21:51)
[2021-01-11] MEDS: NICOTINE 14MG/24HR PATCH TRANSDERM SCH (08:52)
[2021-01-11] MEDS: CLOBETASOL PROP 0.05% CR 15GM TOPICAL SCH ×2 (08:53→21:54)
[2021-01-11] MEDS: TRIAMCINOLONE ACET 0.1% OINTMENT 15 GM TUBE TOPICAL SCH ×2 (08:53→21:54)
[2021-01-11] MEDS: PANTOPRAZOLE 40 MG TABLET PO SCH (08:53)
[2021-01-11] MEDS: HEPARIN SODIUM,PORCINE/PF 5,000 UNIT/0.5 ML SYRINGE SQ SCH ×2 (08:53→21:51)
[2021-01-11] MEDS: NYSTATIN 100,000 UNIT/GM OINT 30 GM TUBE TOPICAL SCH ×2 (08:57→21:54)
[2021-01-11] MEDS ORDERED: PARoxetine 20 MG TAB PO SCH (09:00)
[2021-01-11 09:52] LABS: Basophils # (A) 0.03 X 10*3/uL (0.00-0.10); Basophils % (A) 0.3 %; Eosinophils # (A) 0.06 X 10*3/uL (0.04-0.35); Eosinophils % (A) 0.7 %; HCT 40.7 % (39.6-50.0); HGB 13.4 g/dL (13.0-17.0); Lymphocytes # (A) 1.75 X 10*3/uL (0.90-5.00); Lymphocytes % (A) 19.8 %; MCH 29.4 pg (27.0-32.0); MCHC 32.9 g/dL (32.0-37.0); MCV 89.3 fL (80.0-97.0); Mean Platelet Volume 10.5 fL (9.5-12.2); Monocytes % (A) 9.1 %; Neutrophils # (A) 6.15 X 10*3/uL (1.80-7.70); Neutrophils % (A) 69.8 %; Platelet Count 205 X 10*3/uL (140-440); RBC 4.56 X 10*6/uL (4.40-5.60); RDW 13.2 % (11.5-14.5); WBC 8.82 X 10*3/uL (4.50-10.00)
--- NOTE | 2021-01-11 10:00 | US ---
EXAMINATION TYPE: US scrotum with doppler. Grayscale and color Doppler Duplex imaging performed of elyssa red scrotum. DATE OF EXAM: 01/11/2021 COMPARISON: NONE CLINICAL HISTORY: scrotal swelling ? abscess. scrotal swelling, pain, redness EXAM MEASUREMENTS: TESTICLES: Right Testicle: 4.0 x 2.2 x 3.1 cm Left Testicle: 4.1 x 2.4 x 3.0 cm EPIDIDYMIS HEAD: Right Epididymis: 1.2 cm Left Epididymis: unable to visualize Doppler performed to assess for testicular vascularity; good bilateral color flow and waveforms are s een. There is no evidence of testicular torsion. Presence of hydroceles: small fluid collection medial to right testicle = 3.7cm and lateral to left testicle = 3.9cm *microcalcifications left testicle *large amount of scrotal edema IMPRESSION: 1. Large amount of scrotal edema. Please correlate clinically for possible Tanmay's gangrene. 2. Small bilateral hydroceles. 3. Left-sided microlithiasis. Follow-up ultrasound recommended in 6 months.
[2021-01-11 10:38] LABS: African American GFR (CKD) 126.8 (60.0-200.0); Anion Gap 5.9 mmol/L (4.00-12.00); BUN/Creat Ratio 8.75 Ratio (12.00-20.00); Carbon Dioxide 29.1 mmol/L (21.6-31.8); Non-African American GFR(CKD) 109.4 (60.0-200.0)
[2021-01-11] MEDS ORDERED: THIAMINE 100 MG TAB PO SCH (12:00)
[2021-01-11] MEDS ORDERED: FOLIC ACID 1 MG TAB PO SCH (12:00)
--- NOTE | 2021-01-11 12:56 | PN ---
PROGRESS NOTE DATE OF SERVICE: 01/11/2021. REASON FOR FOLLOW UP: Scrotal cellulitis. INTERVAL HISTORY: Patient is afebrile. The patient is feeling slightly better. The patient scrotal pain has decreased in intensity. The patient denies any chest pain, shortness of breath, cough, abdominal pain. No diarrhea. PHYSICAL EXAMINATION: Blood pressure 123/79, pulse of 75, temperature 98.5. He is 100% on room air. General description is a middle-aged male lying in bed in no distress. Respiratory system: Unlabored breathing, clear to auscultation anteriorly. Heart: S1, S2. Regular rate and rhythm. Abdomen: Soft, no tenderness. Scrotal swelling and redness has decreased. No black eschar or any drainage. LABS: Hemoglobin 13.4, white count 8.3, BUN of 11, creatinine 0.8. Scrotal ultrasound showing scrotal edema, abscess, raises the possibility for patient admitted to the hospital with scrotal pain and swelling concerning for scrotal cellulitis. No mention of any abscess on the ultrasound. Clinically not behaving as . However, the patient benefit from urology evaluation. Continue with vancomycin and Unasyn. Continue supportive care. MMODL / IJN: [id number] /
[2021-01-11] MEDS ORDERED: VANCOMYCIN TROUGH DUE 1 EACH MISC MISCELLANE ONE (20:00)
--- NOTE | 2021-01-11 21:31 | PN ---
PROGRESS NOTE DATE OF SERVICE: 01/11/2021 This 45-year-old gentleman admitted with significant pain and swelling of the scrotum, including scrotal cellulitis and some abrasion. He is on IV antibiotic. The ultrasound showed presence of high-doses of small fluid collections was noted. No chest pain. No palpitations. No fever. PHYSICAL EXAMINATION: Alert and oriented x3. The pulse is 75. Blood pressure 120/77. Respiration 18. Temperature 98.2, pulse ox 100 percent on room air. HEENT: Conjunctivae normal. NECK: No JVD. CARDIOVASCULAR: S1, S2 muffled. RESPIRATORY SYSTEM: Breath sounds diminished at the bases. A few scattered rhonchi. ABDOMEN: Soft. NERVOUS SYSTEM: No focal deficits. LABORATORY DATA: Hemoglobin 8.0, white count 7.6. Sodium 140, potassium 4. ASSESSMENT: 1. Acute scrotal cellulitis with severe pain and failure of outpatient treatment with severe acute respiratory syndrome. 2. Increased WBC. 3. Bilateral small hydroceles. 4. Hyponatremia. 5. Increased random blood sugar. 6. History of polysubstance abuse associated with psychosis previously. 7. History of degenerative joint disease. 8. History of right clavicle fracture. 9. History of MRSA. 10.History of nicotine dependence, continued ongoing. RECOMMENDATIONS AND DISCUSSION: I recommend to continue current medications, management and symptomatic treatment. Otherwise continue with infectious disease evaluation. Cultures are negative so far. antibiotics. Guarded prognosis. Further recommendations to follow. MMODL / IJN: [id number] /
[2021-01-12] MEDS: AMPICILLIN-SULBACTAM 3 GM in SODIUM CHLORIDE 0.9% 100 ML IVPB SCH ×2 (01:10→09:33)
[2021-01-12] MEDS: VANCOMYCIN 1,500 MG in SODIUM CHLORIDE 0.9% 250 ML IVPB SCH (05:20)
[2021-01-12] MEDS: HYDROmorphone 1 MG/ML 1 ML SYRINGE IVP PRN (05:43)
[2021-01-12 07:50] VITALS: BP 133/83; PULSE 60; RESP 17; TEMP 97.6
[2021-01-12] MEDS: PANTOPRAZOLE 40 MG TABLET PO SCH (08:35)
[2021-01-12] MEDS: CLOBETASOL PROP 0.05% CR 15GM TOPICAL SCH (09:32)
[2021-01-12] MEDS: NYSTATIN 100,000 UNIT/GM OINT 30 GM TUBE TOPICAL SCH (09:32)
[2021-01-12] MEDS: NICOTINE 14MG/24HR PATCH TRANSDERM SCH (09:33)
[2021-01-12] MEDS: TRIAMCINOLONE ACET 0.1% OINTMENT 15 GM TUBE TOPICAL SCH (09:33)
--- NOTE | 2021-01-12 11:24 | PN ---
PROGRESS NOTE DATE OF SERVICE: 01/12/2021 REASON FOR FOLLOWUP: Scrotal cellulitis. INTERVAL HISTORY: The patient is afebrile. The patient is feeling better. Breathing comfortably. Overall, scrotal swelling, redness has decreased. No chest pain, shortness of breath or cough. No abdominal pain or diarrhea. Feeling better, wants to go home. PHYSICAL EXAMINATION: Blood pressure 133/83, pulse of 50, temperature 97.6. He is 97 percent on room air. GENERAL DESCRIPTION: Is a middle-aged male lying in bed in no distress. RESPIRATORY SYSTEM: Unlabored breathing, clear to auscultation anteriorly. HEART: S1, S2. Regular rate and rhythm. Scrotal swelling has improved. No drainage. No wound or any black tissue. LABS: Blood culture has been negative. DIAGNOSTIC IMPRESSION AND PLAN: Patient with scrotal cellulitis. Overall improvement on vancomycin and Unasyn. Finish therapy with oral Bactrim and Augmentin for about 10 days and close outpatient followup. MMODL / IJN: [id number] /
--- NOTE | 2021-01-13 16:46 | P.DS ---
Providers Date of admission: 01/10/21 03:13 Expected date of discharge: 01/12/21 Attending physician: Miguelina Yuan Consults: 01/10/21 11:22 Consult Physician Routine Consulting Provider: Norah Ibanez Consult Reason/Comments: scrotal edema, pain Do you want consulting provider notified?: Yes 01/12/21 09:29 Consult Physician Urgent Consulting Provider: Karel Rubio Consult Reason/Comments: scrotal edema/ bilateral hydrocele, L side microlithiasis Do you want consulting provider notified?: Yes Primary care physician: Yi Tucker [facility] Course: Final diagnosis Acute scrotal cellulitis with severe pain and failure of outpatient treatment Increased white blood count Bilateral small hydroceles Hyponatremia Increased random blood sugar history of polysubstance abuse associated with psychosis previously History of DJD History of right clavicle fracture History of MRSA Continued ongoing nicotine dependence Discharge disposition Patient is being discharged in a stable condition with guarded prognosis to home. Patient will follow-up with Dr. Tucker in the outpatient setting upon discharge. Patient to also the follow-up with urology outpatient. Patient will continue on oral antibiotics in the form of Augmentin twice daily and Bactrim twice daily for the next 10 days. Patient will also continue with Kenalog cream and nystatin twice daily as instructed. Total time taken is greater than 35 minutes. Hospital course This is a 45-year-old male who was recently admitted with significant pain and swelling of the scrotum including scrotal cellulitis and some abrasions and was being closely monitored. He was placed on IV antibiotic therapy and infectious disease following. Scrotal ultrasound showed hydrocele with small fluid collections and will need outpatient follow-up with urology for repeat ultrasound and follow-up. Patient will continue on oral antibiotics in the form of Augmentin along with Bactrim for the next 10 days and instructed to follow-up with primary care provider upon discharge. Patient is adamant about going home today. Currently no reports of chest pain, shortness of breath, or palpitations. Patient is afebrile. No reports of nausea or vomiting and patient is tolerating diet. Patient will be discharged home today. Patient instructed to follow-up with primary care provider upon discharge.. On exam vital signs are stable. Cardio S1, S2 are muffled. Respiratory system shows diminished breath sounds at the bases with no wheezing or rhonchi noted. Abdomen is soft and nontender. Nervous system shows no focal deficits. Please refer to medication reconciliation sheet for a list of medications. Patient Condition at Discharge: Good Plan - Discharge Summary New Discharge Prescriptions: New Ibuprofen [Motrin] 400 mg PO Q6HR PRN #30 tab PRN Reason: Pain Amoxic-Pot Clav 875-125Mg [Augmentin 875-125] 1 tab PO Q12HR 10 Days #20 tab Sulfamethox-Tmp 800-160Mg [Bactrim DS 800-160 mg] 1 tab PO Q12HR 30 Days #20 tab Nystatin 100,000 Unit/gm Oint [Mycostatin Oint] 1 applic TOPICAL BID applic Continue Halobetasol Propionate [Ultravate] 1 applic TOPICAL BID Triamcinolone 0.1% Lotion [Kenalog 0.1% Lotion] 1 applic TOPICAL BID PARoxetine [Paxil] 20 mg PO DAILY Cyclobenzaprine [Flexeril] 10 mg PO TID PRN PRN Reason: Muscle Spasm Discontinued Clindamycin Phosphate 1 applic TOPICAL BID PRN PRN Reason: Rash Discharge Medication List Cyclobenzaprine [Flexeril] 10 mg PO TID PRN 01/10/21 [History] Halobetasol Propionate [Ultravate] 1 applic TOPICAL BID 01/10/21 [History] PARoxetine [Paxil] 20 mg PO DAILY 01/10/21 [History] Triamcinolone 0.1% Lotion [Kenalog 0.1% Lotion] 1 applic TOPICAL BID 01/10/21 [History] Amoxic-Pot Clav 875-125Mg [Augmentin 875-125] 1 tab PO Q12HR 10 Days #20 tab 01/12/21 [Rx] Ibuprofen [Motrin] 400 mg PO Q6HR PRN #30 tab 01/12/21 [Rx] Nystatin 100,000 Unit/gm Oint [Mycostatin Oint] 1 applic TOPICAL BID applic 01/12/21 [Rx] Sulfamethox-Tmp 800-160Mg [Bactrim DS 800-160 mg] 1 tab PO Q12HR 30 Days #20 tab 01/12/21 [Rx] Follow up Appointment(s)/Referral(s): Yi Tucker MD [Primary Care Provider] - 1-2 days Karel Rubio MD [STAFF PHYSICIAN] - 2 Weeks Patient Instructions/Handouts: Cellulitis (GEN), Scrotal Pain (GEN) Activity/Diet/Wound Care/Special Instructions: Activity Limited until follow-up Take medications as prescribed Finish all of antibiotic Follow-up outpatient with primary care provider Continue with creams as instructed Follow-up with urology outpatient for possible outpatient ultrasound in 6 months for left side microlithiasis and noted hydrocele bilaterally continue current diet Discharge Disposition: HOME SELF-CARE
== END 2021-01-12 12:18 | disposition home or self-care (01) ==
LOC: EC 01:15 → 6NMEDSUR 03:13
PROVIDERS: ADMIT Hospitalist; ATTEND Hospitalist
DX: N49.2 Inflammatory disorders of scrotum (principal); N43.3 Hydrocele, unspecified; E87.1 Hypo-osmolality and hyponatremia; M19.90 Unspecified osteoarthritis, unspecified site; L03.314 Cellulitis of groin; F17.200 Nicotine dependence, unspecified, uncomplicated; R73.9 Hyperglycemia, unspecified; J80 Acute respiratory distress syndrome; Z86.14 Personal history of Methicillin resistant Staphylococcus aureus infection; Z79.899 Other long term (current) drug therapy
CPT/HCPCS: 96376 ×2; 96366 ×3; 96367; 96372 ×2; 96361; 96365; 96375; 99285; 36415; 80053; 80048; 83605; 83735; 84100; 85025 ×2; 80202; 81003; 87040; 87070; 87205; 93975; 76870; 72193; G0378 ×3; S4990 ×3; J3370 ×3; J2060; J2270; J0696; J1170 ×2; J0295 ×3; Q9967; J1644 ×2

== ENCOUNTER 2021-10-30 21:45 | Emergency (ER) | payer OTHER ==
[2021-10-30 21:56] VITALS: TEMP 97.6
[2021-10-30] MEDS ORDERED: LORazepam 1 MG TAB PO STA (22:08)
[2021-10-30] MEDS ORDERED: CEPHALEXIN 500 MG CAP PO STA (22:08)
--- NOTE | 2021-10-30 23:36 | ED ---
General Adult HPI - General Source: EMS Mode of arrival: ambulatory <Elizabeth Carranza - Last Filed: 10/31/21 01:27> <Vicente Granados - Last Filed: 10/31/21 02:01> - General Chief complaint: Psychiatric Symptoms Stated complaint: Mental Health - History of Present Illness Initial comments: 46-year-old male past history of polysubstance abuse presents emergency department for a "ruptured cyst". Patient [place] stating that he needed to be transported to the hospital because he had a cyst rupture. Patient arrives very anxious, agitated and paranoid. He admits that someone gave him a white powder today. He thought it was cocaine however instantly began feeling agitated. Patient concerned that he was given bath salts. No history of psych disorder. Remainder of the HPI is limited (Elizabeth Carranza) - Related Data Home Medications Medication Instructions Recorded Confirmed Cyclobenzaprine [Flexeril] 10 mg PO TID PRN 01/10/21 01/10/21 Halobetasol Propionate [Ultravate 1 applic TOPICAL BID 01/10/21 01/10/21 0.05%] PARoxetine [Paxil] 20 mg PO DAILY 01/10/21 01/10/21 Triamcinolone 0.1% Lotion [Kenalog 1 applic TOPICAL BID 01/10/21 01/10/21 0.1% Lotion] Previous Rx's Medication Instructions Recorded Amoxic-Pot Clav 875-125Mg 1 tab PO Q12HR 10 Days #20 tab 01/12/21 [Augmentin 875-125] Ibuprofen [Motrin] 400 mg PO Q6HR PRN #30 tab 01/12/21 Nystatin 100,000 Unit/gm Oint 1 applic TOPICAL BID applic 01/12/21 [Mycostatin Oint] Sulfamethox-Tmp 800-160Mg [Bactrim 1 tab PO Q12HR 30 Days #20 tab 01/12/21 DS 800-160 mg] Cephalexin [Keflex] 500 mg PO Q6HR 1 Days #28 cap 10/31/21 Allergies Allergy/AdvReac Type Severity Reaction Status Date / Time No Known Allergies Allergy Verified 01/10/21 09:04 Review of Systems ROS Other: All systems not noted in ROS Statement are negative. <Damer,Elizabeth A - Last Filed: 10/31/21 01:27> ROS Other: All systems not noted in ROS Statement are negative. <Vicente Granados - Last Filed: 10/31/21 02:01> ROS Statement: Those systems with pertinent positive or pertinent negative responses have been documented in the HPI. Past Medical History Past Medical History: Osteoarthritis (OA) Additional Past Medical History / Comment(s): right clavicle fracture History of Any Multi-Drug Resistant Organisms: MRSA Date of last positivie culture/infection: 11/26/20 MDRO Source:: Right Knee Past Surgical History: Orthopedic Surgery Past Psychological History: No Psychological Hx Reported Smoking Status: Current every day smoker Past Alcohol Use History: None Reported Past Drug Use History: None Reported <Elizabeth Carranza Adi - Last Filed: 10/31/21 01:27> General Exam General appearance: alert, in no apparent distress Head exam: Present: atraumatic, normocephalic, normal inspection Eye exam: Present: normal appearance, PERRL, EOMI. Absent: scleral icterus, conjunctival injection, periorbital swelling ENT exam: Present: normal exam, mucous membranes moist Neck exam: Present: normal inspection. Absent: tenderness, meningismus, lymphadenopathy Respiratory exam: Present: normal lung sounds bilaterally. Absent: respiratory distress, wheezes, rales, rhonchi, stridor Cardiovascular Exam: Present: regular rate, normal rhythm, normal heart sounds. Absent: systolic murmur, diastolic murmur, rubs, gallop, clicks GI/Abdominal exam: Present: soft, normal bowel sounds. Absent: distended, tenderness, guarding, rebound, rigid Extremities exam: Present: normal inspection, full ROM, normal capillary refill. Absent: tenderness, pedal edema, joint swelling, calf tenderness Back exam: Present: normal inspection Neurological exam: Present: alert, oriented X3, CN II-XII intact Psychiatric exam: Present: normal affect, normal mood Skin exam: Present: warm, dry, intact, normal color. Absent: rash <Vicente Granados - Last Filed: 10/31/21 02:01> Course <Vicente Granados - Last Filed: 10/31/21 02:01> Vital Signs 10/30/21 10/30/21 10/31/21 21:49 22:31 00:20 Temperature 97.6 F Pulse Rate 97 88 78 Respiratory 100 H 20 18 Rate Blood Pressure 135/101 139/98 141/65 O2 Sat by Pulse 97 99 97 Oximetry - Reevaluation(s) Reevaluation #1: 10/31/21 02:01 Medical record is reviewed (Vicente Granados) Reevaluation #2: 10/31/21 02:01 Patient is medically clear for psychiatric evaluation (Vicente Granados) Medical Decision Making <Elizabeth Carranza - Last Filed: 10/31/21 01:27> <Vicente Granados - Last Filed: 10/31/21 02:01> - Medical Decision Making Upon arrival patient is placed into room 2. There are history of physical exam was performed. Patient given a dose of Keflex and Ativan. Patient is given the option to be discharged however he is requesting to speak to EPS. Patient currently awaiting EPS evaluation. (Elizabeth Carranza) 46 male who has been seen and evaluated psychiatry, patient seen by EPS is stable for discharge home (Vicente Granados) - Lab Data Lab Results 10/30/21 Range/Units 23:37 Urine Opiates Screen Not Detected (NotDetected) Ur Oxycodone Screen Not Detected (NotDetected) Urine Methadone Screen Not Detected (NotDetected) Ur Propoxyphene Screen Not Detected (NotDetected) Ur Barbiturates Screen Not Detected (NotDetected) U Tricyclic Antidepress Not Detected (NotDetected) Ur Phencyclidine Scrn Not Detected (NotDetected) Ur Amphetamines Screen Detected H (NotDetected) U Methamphetamines Scrn Detected H (NotDetected) U Benzodiazepines Scrn Not Detected (NotDetected) Urine Cocaine Screen Not Detected (NotDetected) U Marijuana (THC) Screen Not Detected (NotDetected) Disposition Is patient prescribed a controlled substance at d/c from ED?: No <Elizabeth Carranza - Last Filed: 10/31/21 01:27> Is patient prescribed a controlled substance at d/c from ED?: No <Vicente Granados - Last Filed: 10/31/21 02:01> Clinical Impression: Cellulitis, Methamphetamine abuse, Acute psychosis Disposition: HOME SELF-CARE Condition: Fair Instructions (If sedation given, give patient instructions): Cellulitis (ED), Brief Psychotic Disorder (ED) Prescriptions: Cephalexin [Keflex] 500 mg PO Q6HR 1 Days #28 cap Referrals: None,Stated [Primary Care Provider] - 1-2 days
[2021-10-31 00:21] VITALS: PULSE 78; RESP 18
[2021-10-31 00:34] LABS: Amphetamine Screen,Urine Detected (NotDetected); Barbiturate Screen,Urine Not Detected (NotDetected); Benzodiazepines Screen,Urine Not Detected (NotDetected); Cocaine Screen,Urine Not Detected (NotDetected); Methadone Screen, Urine Not Detected (NotDetected); Opiate Screen,Urine Not Detected (NotDetected); Oxycodone Screen, Urine Not Detected (NotDetected); Phencyclidine Screen,Urine Not Detected (NotDetected); Tricyclic Antidepressant,Urine Not Detected (NotDetected); Urn Cannabinoid Scrn Not Detected (NotDetected)
[2021-10-31 02:06] VITALS: BP 144/78
== END 2021-10-31 03:01 | disposition home or self-care (01) ==
LOC: EC 21:45
DX: F15.10 Other stimulant abuse, uncomplicated (principal); F23 Brief psychotic disorder; L03.90 Cellulitis, unspecified; F17.200 Nicotine dependence, unspecified, uncomplicated
CPT/HCPCS: 80306; 82075; 99285